=== PATIENT | female | born 1980 | race Caucasian/White ===

== ENCOUNTER 2023-08-22 19:54 | Outpatient (REF) | payer OTHER, SELFPAY ==
[2023-08-28 12:08] LABS: Age Gdln ACOG Testing Note (.); HPV Aptima Negative (Negative); IGP, Aptima HPV, rfx 16/18,45 Note (.)
== END 2023-08-22 19:55 | disposition home or self-care (01) ==
LOC: LAB 19:54
PROVIDERS: Visit Provider Obstetrics & Gynecology
DX: Z01.419 Encounter for gynecological examination (general) (routine) without abnormal findings (principal)
CPT/HCPCS: 87624; G0145

== ENCOUNTER 2023-09-06 06:53 | Outpatient (OUT) | payer OTHER, SELFPAY ==
--- NOTE | 2023-09-06 | MM_ITS ---
Patient Name: JOSR VAZQUEZ MR#: [id number] : 1980 Exam Date: 09/06/2023 Ordering Doctor: DR Hernan Zamora . RADIOLOGY REPORT PROCEDURE: MM TOMOSYNTHESIS SCREENING BI COMPARISON: MG MAMM SCREEN 3D KADEN CAD, 06/23/2022. INDICATIONS: Screening for malignant neoplasm Calculator Name NCI Breast Cancer Risk Assessment Tool 5 Year Breast Cancer Risk 0.50% Lifetime Breast Cancer Risk 9.00% Personal Breast Cancer No Personal Ovarian Cancer No Treatments None Family Cancers None LOCATION: [facility] BREAST COMPOSITION: Heterogeneously dense,which may obscure small masses. FINDINGS: DIAGNOSTIC CATEGORY 2--BENIGN FINDING: RIGHT BREAST: No significant suspicious finding. Scattered benign-appearing lymph nodes are present. No significant change has occurred. LEFT BREAST: No significant suspicious finding. Scattered benign-appearing lymph nodes are present. No significant change has occurred. RECOMMENDATIONS: ROUTINE MAMMOGRAM AND CLINICAL EVALUATION IN 12 MONTHS. PLEASE NOTE: A NORMAL MAMMOGRAM DOES NOT EXCLUDE THE POSSIBILITY OF BREAST CANCER. A CLINICALLY SUSPICIOUS PALPABLE LUMP SHOULD BE BIOPSIED. Dictated by: Mason Vasquez M.D. on 09/11/2023 at 12:53 Approved by: Mason Vasquez M.D. on 09/11/2023 at 12:57
== END 2023-09-06 06:54 | disposition home or self-care (01) ==
LOC: MAMMO 06:53
PROVIDERS: PCP Family Medicine; Visit Provider Obstetrics & Gynecology
DX: Z12.31 Encounter for screening mammogram for malignant neoplasm of breast (principal)
CPT/HCPCS: 77063; 77067

== ENCOUNTER 2024-08-13 15:06 | Outpatient (OUT) | payer OTHER, SELFPAY ==
[2024-08-13 16:05] LABS: Free T3 2.46 pg/mL (2.18-3.98); Thyroid Stimulating Hormone 3.367 uIU/mL (0.358-3.740)
[2024-08-13 16:20] LABS: Free T4 0.87 ng/dL (0.76-1.46)
== END 2024-08-13 15:07 | disposition home or self-care (01) ==
LOC: LAB 15:10
PROVIDERS: PCP Family Medicine; Visit Provider Family Medicine
DX: R79.89 Other specified abnormal findings of blood chemistry (principal); R53.83 Other fatigue
CPT/HCPCS: 36415; 84439; 84443; 84481

== ENCOUNTER 2024-09-02 21:24 | Outpatient (REF) | payer OTHER, SELFPAY ==
--- OUTSIDE RECORDS SUMMARY | 2024-09-02 21:28 | XMS_ITS | CCD ---
Author Organization [facility] Care Team Providers Care Mend Worker Name Role Phone SERA, DR FLOR Consulting Unavailable ZOE, DR CARLITOS Chaves Primary Care Unavailable SERA, DR FLOR Admitting Unavailable SERA, DR FLOR Attending Unavailable JOAQUIM, DR MASON Watson Consulting Unavailable SERA, DR FLOR Consulting Unavailable ZOE, DR CARLITOS Chaves Primary Care Unavailable SERA, DR FLOR Admitting Unavailable SERA, DR FLOR Attending Unavailable ZOE, DR CARLITOS Chaves Admitting Unavailable ENRIQUEZ, DR CARLITOS Chaves Attending Unavailable ENRIQUEZ, DR CARLITOS Chaves Consulting Unavailable ENRIQUEZ, DR CARLITOS Chaves Primary Care Unavailable Mattie Lemon Unavailable Lisa Dejesus Unavailable Paige Benitez MD Primary Care Provider Medications Current Medications Medication Drug Class(es) Dates Sig (Normalized) Sig (Original) fluconazole 150 mg oral tablet (1 source) Azole Antifungal Start: 08-22-2023 fluconazole (Diflucan) 150 MG tablet Indications: Yeast infection Take one tablet by mouth now and again in 4 days 2 tablet 1 08/22/2023 Active predniSONE 20 mg oral tablet (1 source) Start: 11-14-2023 take 1 tablet by mouth every twelve hours prednisone 20 MG 1 tablet Orally BID for 5 Oct, Active Completed/Discontinued Medications Medication Drug Class(es) Dates Sig (Normalized) Sig (Original) methylPREDNISolone 4 mg oral tablet (2 sources) Corticosteroid methylPREDNISolo ne 4 MG as directed Orally daily for 6 days Not-Taking/PRN triamcinolone acetonide 1 mg/ml topical cream (3 sources) Corticosteroid Start: 4 End: 4 Triamcinolone Acetonide Discontinued 1 APPLIC TOPICAL Twice daily June 13, 2024 12:00am June 13, 2024 2:56pm Free[employer] application Externally Twice a day; Note: Source Status: Not-Taking\PRN; Refills: 0; Qty: 45 gram; Provider: Ion Robles Start: 06-23-2023 Triamcinolone Acetonide 0.1 % 1 application Externally Twice a day for 10 days Jun, Not-Taking/PRN Start: 06-23-2023 Triamcinolone Acetonide 0.1 % 1 application Externally Twice a day for 10 days Jun, Active Problems Active Problems Problem Classification Problem Date Documented Date Episodic/Chronic Allergic reactions (1 source) Allergic contact dermatitis due to plants, except food Episodic Immunizations and screening for infectious disease (1 source) Encounter for screening for human papillomavirus (HPV); Translations: [ENC SCREENING HUMAN PAPILLOMAVIRUS] Onset: 06-15-2022 Episodic Other screening for suspected conditions (not mental disorders or infectious disease) (10 sources) Encounter for screening mammogram for malignant neoplasm of breast; Translations: [Encounter for screening for malignant neoplasm of cervix] Onset: 06-14-2022 Episodic Past or Other Problems Problem Classification Problem Date Documented Da te Episodic/Chronic Unclassified (1 source) Contact with and (suspected) exposure to covid-19 Z20.822 Viral infection (1 source) COVID-19 Results Test Name Value Interpretation Reference Range Facility Basophils Auto (Bld) [#/Vol] on 05-31-2024 Basophils (Bld) [#/Vol] 0.1 10 3/uL 0.0-0.[address] [facility] Basophils/100 WBC Auto (Bld) on 05-31-2024 Basophils/100 WBC (Bld) 1.1 % 0.2-2.[address] [facility] Cholesterol in LDL Calc [Mas s/Vol]on 05-31-2024 Cholesterol in LDL [Mass/Vol] 131.8 mg/dL [facility] Comment on above: <100 mg/dl [id number] 0-129 mg/dl NEAR OR ABOVE [id number] mg/dl BORDERLINE [id number] mg/dl HIGH>190 mg/dl VERY HIGH Cholesterol in VLDL Calc [Ma ss/Vol]on 05-31-2024 Cholesterol in VLDL [Mass/Vol] 13.2 mg/dL [facility] Eosinophils/100 WBC Auto (Bl d)on 05-31-2024 Eosinophils/100 WBC (Bld) 2.0 % 0.9-7.[address] [facility] Erythrocyte distribution wid th Auto (RBC) [Ratio]on 05-31-2024 Erythrocyte distribution width (RBC) [Ratio] 13.2 % 11.0-15.[address] [facility] Estimated glomerular filtrat ion rate (GFR) non- Americanon 05-31-2024 GFR/1.73 sq M.predicted among non-blacks MDRD (S/P/Bld) [Vol rate/Area] mL/min/{1.73_m2} >=[address] [facility] Globulin Calc (S) [Mass/Vol] on 05-31-2024 Globulin (S) [Mass/Vol] 3.3 g/dL [facility] Hematocrit Auto (Bld) [Volum e fraction]on 05-31-2024 Hematocrit (Bld) [Volume fraction] 42.4 % 36.0-48.[address] [facility] Hemoglobin [Mass/volume] in Bloodon 05-31-2024 Hemoglobin (Bld) [Mass/Vol] 13.4 g/dL 12.0-16.[address] [facility] Laboratory - Chemistry and C hemistry - challengeon 05-31-2024 Albumin [Mass/Vol] 4.0 g/dL 3.4-5.0 [facility] ALP [Catalytic activity/Vol] 58 U/L 46-[address] [facility] ALT [Catalytic activity/Vol] 34 U/L 14-[address] [facility] AST [Catalytic activity/Vol] 20 U/L 15-[address] [facility] Bilirubin [Mass/Vol] 0.5 mg/dL 0.2-1.0 [facility] Calcium [Mass/Vol] 8.8 mg/dL 8.5-10.1 [facility] Chloride [Moles/Vol] 104 mmol/L 98-107 [facility] Cholesterol [Mass/Vol] 196 mg/dL <=[address] [facility] Cholesterol in HDL [Mass/Vol] 51 mg/dL 40-[address] [facility] Comment on above: > or =60 mg/dl - LOW CARDIOVASCULAR RISK<40 mg/dl - HIGH CARDIOVASCULAR RISK CO2 [Moles/Vol] 27.3 mmol/L 21.0-32.0 [facility] Creatinine [Mass/Vol] 0.76 mg/dL 0.55-1.[address] [facility] GFR/1.73 sq M.predicted MDRD (S/P/Bld) [Vol rate/Area] mL/min/{1.73_m2} >=[address] [facility] Glucose [Mass/Vol] 77 mg/dL 74-106 [facility] Potassium [Moles/Vol] 4.4 mmol/L 3.5-5.[address] [facility] Protein [Mass/Vol] 7.3 g/dL 6.4-8.2 [facility] Sodium [Moles/Vol] 141 mmol/L 136-145 [facility] Triglyceride [Mass/Vol] 66 mg/dL <=[address] [facility] TSH Qn 4.503 m[IU]/L High 0.358-3.[address] [facility] Urea nitrogen [Mass/Vol] 11.0 mg/dL 7.0-18.[address] [facility] Urea nitrogen/Creatinine [Mass ratio] 14.5 mg/mg [facility] Laboratory - Hematology and Cell countson 05-31-2024 Immature granulocytes/100 WBC (Bld) 0.2 % 0.0-0.[address] [facility] Leukocytes [#/volume] correc daphney for nucleated erythrocytes in Blood by Automated counon 05-31-2024 WBC corrected for nucl RBC Auto (Bld) [#/Vol] 6.5 10 3/uL 4.0-11.[address] [facility] Lymphocytes Auto (Bld) [#/Vo l]on 05-31-2024 Lymphocytes (Bld) [#/Vol] 2.5 10 3/uL 1.2-3.[address] [facility] Lymphocytes/100 WBC Auto (Bl d)on 05-31-2024 Lymphocytes/100 WBC (Bld) 38.4 % 20.5-60.[address] [facility] MCH Auto (RBC) [Entitic mass ]on 05-31-2024 MCH (RBC) [Entitic mass] 27.9 pg 26.7-34.[address] [facility] MCHC Auto (RBC) [Mass/Vol]on 05-31-2024 MCHC (RBC) [Mass/Vol] 31.6 g/dL 29.9-35.[address] [facility] MCV Auto (RBC) [Entitic vol] on 05-31-2024 MCV (RBC) [Entitic vol] 88.3 fL 81.0-99.[address] [facility] Monocytes Auto (Bld) [#/Vol] on 05-31-2024 Monocytes (Bld) [#/Vol] 0.5 10 3/uL 0.3-0.[address] [facility] Monocytes/100 WBC Auto (Bld) on 05-31-2024 Monocytes/100 WBC (Bld) 7.4 % 1.7-12.[address] [facility] Neutrophils Auto (Bld) [#/Vo l]on 05-31-2024 Neutrophils (Bld) [#/Vol] 3.3 10 3/uL 1.4-6.[address] [facility] Neutrophils/100 WBC Auto (Bl d)on 05-31-2024 Neutrophils/100 WBC (Bld) 50.9 % 43.0-75.[address] [facility] No Panel Informationon 05-31 Eosinophils # (Auto) 0.1 10 3/uL 0.0-0.7 [facility] Immature Granulocyte # (Auto) 0.01 10 3/uL 0.00-0.[address] [facility] Platelet mean volume Auto (B ld) [Entitic vol]on 05-31-2024 Platelet mean volume (Bld) [Entitic vol] 10.5 fL 9.5-13.[address] [facility] Platelets Auto (Bld) [#/Vol] on 05-31-2024 Platelets (Bld) [#/Vol] 284 10 3/uL 150-[address] [facility] RBC Auto (Bld) [#/Vol]on RBC (Bld) [#/Vol] 4.80 10 6/uL 4.20-5.40 [facility] Serum or plasma albumin/glob ulin mass ratioon 05-31-2024 Albumin/Globulin [Mass ratio] 1.2 {ratio} [facility] Serum or plasma anion gap de terminationon 05-31-2024 Anion gap [Moles/Vol] 14.1 mmol/L [facility] Serum or plasma total choles terol/high density lipoprotein (HDL) cholesterol mass aannd 05-31-2024 Cholesterol.total/Ch olesterol in HDL [Mass ratio] 3.8 {ratio} [facility] Comment on above: 3.3 - 4.4 LOW RISK4. 4 - 7.1 AVERAGE RISK7.1 - 11.0 MODERATE RISK>11.0 HIGH RISK COVID + FLU Quick Testingon 11-14-2023 SARS-CoV-2 (COVID-19) RNA RISSA+probe Ql (Unsp spec) Positive [facility] Other COVID + FLU Quick Testing Negative [employer] Other MG MAMM SCREEN 3D KADEN CADon 06-23-2022 MG MAMM SCREEN 3D KADEN CAD Patient: CARLEY RUBIO Exam Date: 06/23/2022 : 1980 Gender:F Ordering : DR CHACHO ZAMORA . Admission #: [id number] Family : Order #: [id number] CLICK HERE TO VIEW EXAM RADIOLOGY REPORT PROCEDURE: MAMMOGRAM SCREENING 3D BILATERAL CAD COMPARISON: None. INDICATIONS: Screening mammography Calculator Name NCI Breast Cancer Risk Assessment Tool 5 Year Breast Cancer Risk 0.50% Lifetime Breast Cancer Risk 9.00% Personal Breast Cancer No Personal Ovarian Cancer No Treatments None Family Cancers None LOCATION: [facility] BREAST COMPOSITION: Heterogeneously dense,which may obscure small masses. FINDINGS: DIAGNOSTIC CATEGORY 2--BENIGN FINDING: RIGHT BREAST: No significant suspicious finding. Benign-appearing lymph node posterior upper-outer quadrant. LEFT BREAST: No significant suspicious finding. Benign-appearing lymph node posterior upper-outer quadrant. RECOMMENDATIONS: ROUTINE MAMMOGRAM AND CLINICAL EVALUATION IN 12 MONTHS. PLEASE NOTE: A NORMAL MAMMOGRAM DOES NOT EXCLUDE THE POSSIBILITY OF BREAST CANCER. A CLINICALLY SUSPICIOUS PALPABLE LUMP SHOULD BE BIOPSIED. Dictated by: Mason Vasquez M.D. on 06/24/2022 at 08:10 Approved by: Mason Vasquez M.D. on 06/24/2022 at 08:14 Normal [facility] PAP ACOG PANEL 2: 30 to 65on 06-22-2022 . . Normal [facility] Comment on above: Result Comment: Perf ormed at: WB Performed By: #### [id number] #### [facility] [address] [address] [address] Ofelia Chi Age Gdln ACOG Testing 30-65 [facility] Comment on above: Performed By: #### [id number] #### [facility] [address] [address] [address] Ofelia Chi DIAGNOSIS: Comment [facility] Comment on above: Result Comment: NEGA TIVE FOR INTRAEPITHELIAL LESION OR MALIGNANCY. Performed at: WB Performed By: #### [id number] #### [facility] [address] [place] [address] Dr. Ofelia Chi HPV Aptima Negative Normal Negative [facility] Comment on above: Result Comment: This nucleic acid amplification test detects fourteen high-risk HPV types (16,18,31,33,35,39,45,51,52,56,58,59,66,68) without differentiation. Performed at: =G Performed By: #### [id number] #### [facility] [address] [place] [address] Dr. Ofelia Chi Methodology: Comment [facility] Comment on above: Result Comment: This liquid based ThinPrep(R) pap test was screened with the use of an image guided system. Performed at: WB Performed By: #### [id number] #### [facility] [address] [place] [address] Dr. Ofelia Chi Note: Comment [facility] Comment on above: Result Comment: The Pap smear is a screening test designed to aid in the detection of premalignant and malignant conditions of the uterine cervix. It is not a diagnostic procedure and should not be used as the sole means of detecting cervical cancer. Both false-positive and false-negative reports do occur. . Performed at: WB Performed By: #### [id number] #### [facility] [address] [place] [address] Dr. Ofelia Chi Performed by: Comment Normal [facility] Comment on above: Result Comment: [place], Associate Music Professor (ASCP) Performed at: WB Performed By: #### [id number] #### [facility] [address] [place] [address] Dr. Ofelia Chi Specimen adequacy: Comment Normal [facility] Comment on above: Result Comment: Sati sfactory for evaluation. Endocervical and/or squamous metaplastic cells (endocervical component) are present. Performed at: WB Performed By: #### [id number] #### [facility] [address] [place] [address] Dr. Ofelia Chi [facility] CBC AUTO DIFFon 06-02-2022 BASO # 0.1 103/ul Normal 0.0-0.1 [facility] Comment on above: Performed By: #### H FPFCBC #### [facility] [address] [place] [address] Dr. Ofelia Chi Basophils/100 WBC (Bld) 1.1 % Normal 0.2-2.0 [facility] Comment on above: Performed By: #### H FPFCBC #### [facility] [address] [place] [address] Dr. Ofelia Chi EO # 0.2 103/ul Normal 0.0-0.7 [facility] Comment on above: Performed By: #### H FPFCBC #### [facility] [address] [place] [address] Dr. Ofelia Chi Eosinophils/100 WBC (Bld) 2.1 % Normal 0.9-7.0 [facility] Comment on above: Performed By: #### H FPFCBC #### [facility] [address] [place] [address] Dr. Ofelia Chi Erythrocyte distribution width (RBC) [Ratio] 13.1 % Normal 11.0-15.0 [facility] Comment on above: Performed By: #### H FPFCBC #### [facility] [address] [place] [address] Dr. Ofelia Chi Hematocrit (Bld) [Volume fraction] 40.8 % Normal 36.0-48.0 [facility] Comment on above: Performed By: #### H FPFCBC #### [facility] [address] [address] [address] Ofelia Chi Hemoglobin (Bld) [Mass/Vol] 12.8 g/dL Normal 12.0-16.0 [facility] Comment on above: Performed By: #### H FPFCBC #### [facility] [address] [address] [address] Ofelia Chi IG # 0.02 10e3/ul Normal 0.00-0.03 [facility] Comment on above: Performed By: #### H FPFCBC #### [facility] [address] [address] [address] Ofelia Chi IG % 0.3 % Normal 0.0-0.5 [facility] Comment on above: Performed By: #### H FPFCBC #### [facility] [address] [place] [address] Dr. Ofelia Chi LYMPH # 2.6 103/ul Normal 1.2-3.8 [facility] Comment on above: Performed By: #### H FPFCBC #### [facility] [address] [address] [address] Ofelia Chi Lymphocytes/100 WBC (Bld) 36.2 % Normal 20.5-60.0 [facility] Comment on above: Performed By: #### H FPFCBC #### [facility] [address] [address] [address] Ofelia Chi MCH (RBC) [Entitic mass] 27.6 pg Normal 26.7-34.0 [facility] Comment on above: Performed By: #### H FPFCBC #### [facility] [address] [address] [address] Ofelia Chi MCHC (RBC) [Mass/Vol] 31.4 g/dL Normal 29.9-35.2 [facility] Comment on above: Performed By: #### H FPFCBC #### [facility] [address] [address] [address] Ofelia Chi MCV (RBC) [Entitic vol] 87.9 fL Normal 81.0-99.0 [facility] Comment on above: Performed By: #### H FPFCBC #### [facility] [address] [place] [address] Dr. Ofelia Chi MONO # 0.6 103/ul Normal 0.3-0.8 [facility] Comment on above: Performed By: #### H FPFCBC #### [facility] [address] [place] [address] Dr. Ofelia Chi Monocytes/100 WBC (Bld) 8.4 % Normal 1.7-12.0 [facility] Comment on above: Performed By: #### H FPFCBC #### [facility] [address] [place] [address] Dr. Ofelia Chi NEUT # 3.7 103/ul Normal 1.4-6.5 [facility] Comment on above: Performed By: #### H FPFCBC #### [facility] [address] [place] [address] Dr. Ofelia Chi Neutrophils/100 WBC (Bld) 51.9 % Normal 43.0-75.0 [facility] Comment on above: Performed By: #### H FPFCBC #### [facility] [address] [place] [address] Dr. Ofelia Chi Platelet mean volume (Bld) [Entitic vol] 10.0 fL Normal 9.5-13.5 [facility] Comment on above: Performed By: #### H FPFCBC #### [facility] [address] [place] [address] Dr. Ofelia Chi PLT 255 103/ul Normal 150-450 [facility] Comment on above: Performed By: #### H FPFCBC #### [facility] [address] [place] [address] Dr. Ofelia Chi RBC 4.64 106/ul Normal 4.20-5.40 [facility] Comment on above: Performed By: #### H FPFCBC #### [facility] [address] [place] [address] Dr. Ofelia Chi WBC 7.1 103/ul Normal 4.0-11.0 [facility] Comment on above: Performed By: #### H FPFCBC #### [facility] [address] [address] [address] Ofelia Chi [employer] PROFILEon 06-02- 022 Albumin [Mass/Vol] 3.8 g/dL Normal 3.4-5.0 [facility] Comment on above: Performed By: #### H FPF #### [facility] [address] [place] [address] Dr. Ofelia Chi Albumin/Globulin [Mass ratio] 1.1 {ratio} Normal [facility] Comment on above: Performed By: #### H FPF #### [facility] [address] [place] [address] Dr. Ofelia Chi ALP [Catalytic activity/Vol] 47 U/L Normal 46-116 [facility] Comment on above: Performed By: #### H FPF #### [facility] [address] [place] [address] Dr. Ofelia Chi ALT [Catalytic activity/Vol] 18 U/L Normal 14-59 [facility] Comment on above: Performed By: #### H FPF #### [facility] [address] [place] [address] Dr. Ofelia Chi AST [Catalytic activity/Vol] 16 U/L Normal 15-37 [facility] Comment on above: Performed By: #### H FPF #### [facility] [address] [place] [address] Dr. Ofelia Chi Bilirubin [Mass/Vol] 0.2 mg/dL Normal 0.2-1.0 [facility] Comment on above: Performed By: #### H FPF #### [facility] [address] [address] [address] Ofelia Chi Calcium [Mass/Vol] 8.8 mg/dL Normal 8.5-10.1 [facility] Comment on above: Performed By: #### H FPF #### [facility] [address] [place] [address] Dr. Ofelia Chi Chloride [Moles/Vol] 104 mmol/L Normal 98-107 [facility] Comment on above: Performed By: #### H FPF #### [facility] [address] [address] [address] Ofelia Chi CHOL-HDL RATIO NORM SEE BELOW Normal [facility] Comment on above: Result Comment: 3.3 - 4.4 LOW RISK 4.4 - 7.1 AVERAGE RISK 7.1 - 11.0 MODERATE RISK >11.0 HIGH RISK Performed By: #### H FPF #### [facility] [address] [address] [address] Ofelia Chi Cholesterol [Mass/Vol] 186 mg/dL Normal <=200 [facility] Comment on above: Performed By: #### H FPF #### [facility] [address] [address] [address] Ofelia Chi Cholesterol in HDL [Mass/Vol] 49 mg/dL Normal 40-60 [facility] Comment on above: Performed By: #### H FPF #### [facility] [address] [address] [address] Ofelia Chi Cholesterol in LDL [Mass/Vol] 122.6 mg/dL Normal [facility] Comment on above: Performed By: #### H FPF #### [facility] [address] [address] [address] Ofelia Chi Cholesterol.total/Ch olesterol in HDL [Mass ratio] 3.8 {ratio} Normal [facility] Comment on above: Performed By: #### H FPF #### [facility] [address] [address] [address] Ofelia Chi CO2 [Moles/Vol] 24.5 mmol/L Normal 21.0-32.0 [facility] Comment on above: Performed By: #### H FPF #### [facility] [address] [address] [address] Ofelia Chi Creatinine [Mass/Vol] 0.68 mg/dL Normal 0.55-1.02 [facility] Comment on above: Performed By: #### H FPF #### [facility] [address] [address] [address] Ofelia Chi Globulin (S) [Mass/Vol] 3.4 g/dL Normal [facility] Comment on above: Performed By: #### H FPF #### [facility] [address] [address] [address] Ofelia Chi Glucose [Mass/Vol] 87 mg/dL Normal 74-106 [facility] Comment on above: Performed By: #### H FPF #### [facility] [address] [address] [address] Ofelia Chi HDL NORMAL > or = 60 mg/dl - LOW CARDIOVASCULAR RISK <40 mg/dl - HIGH CARDIOVASCULAR RISK Normal [facility] Comment on above: Performed By: #### H FPF #### [facility] [address] [address] [address] Ofelia Chi LDL CALC NORMAL SEE BELOW Normal [facility] Comment on above: Result Comment: <100 mg/dl OPTIMAL 100 - 129 mg/dl NEAR OR ABOVE OPTIMAL 130 - 159 mg/dl BORDERLINE HIGH 160 - 189 mg/dl HIGH >190 mg/dl VERY HIGH Performed By: #### H FPF #### [facility] [address] [address] [address] Ofelia Chi Potassium [Moles/Vol] 4.1 mmol/L Normal 3.5-5.1 [facility] Comment on above: Performed By: #### H FPF #### [facility] [address] [address] [address] Ofelia Chi Protein [Mass/Vol] 7.2 g/dL Normal 6.4-8.2 [facility] Comment on above: Performed By: #### H FPF #### [facility] [address] [address] [address] Ofelia Chi Sodium [Moles/Vol] 138 mmol/L Normal 136-145 [facility] Comment on above: Performed By: #### H FPF #### [facility] [address] [address] [address] Ofelia Chi Triglyceride [Mass/Vol] 72 mg/dL Normal <=150 [facility] Comment on above: Performed By: #### H FPF #### [facility] [address] [address] [address] Ofelia Chi TSH 3.946 uIU/mL Critically high 0.358-3.740 [facility] Comment on above: Performed By: #### H FPF #### [facility] [address] [address] [address] Ofelia Chi Urea nitrogen [Mass/Vol] 18.0 mg/dL Normal 7.0-18.0 [facility] Comment on above: Performed By: #### H FPF #### [facility] [address] [address] [address] Ofelia Chi Urea nitrogen/Creatinine [Mass ratio] 26.5 mg/mg Normal [facility] Comment on above: Performed By: #### H FPF #### [facility] [address] [address] [address] Ofelia Chi VLDL CALC 14.4 mg/dL [facility] Comment on above: Performed By: #### H FPF #### [facility] [address] [address] [address] Ofelia Chi Vital Signs Date Time Vital Sign Value Performing Clinician Facility 06-13-2024 14:51-0400 Body height 162.56 cm [facility] 06-13-2024 14:51-0400 Body mass index (BMI) [Ratio] 29.5 kg/m2 [facility] 06-13-2024 14:51-0400 Body weight 78.01 kg [facility] 06-13-2024 14:51-0400 Diastolic blood pressure 89 mm[Hg] [facility] 06-13-2024 14:51-0400 Heart rate 80 /min [facility] 06-13-2024 14:51-0400 Systolic blood pressure 136 mm[Hg] [facility] 11-14-2023 17:50-0500 Body height 162.56 cm Lisa Dejesus Other [facility] Other 11-14-2023 17:50-0500 Body mass index (BMI) [Ratio] 29.52 kg/m2 Lisa Dejesus Other [facility] Other 11-14-2023 17:50-0500 Body temperature 98.2 [degF] Lisa Dejesus Other [employer] Other 11-14-2023 17:50-0500 Body weight 78.02 kg Lisa Dejesus Other [employer] Other 11-14-2023 17:50-0500 Respiratory rate 18 /min Lisa Dejesus Other [employer] Other 11-14-2023 17:50-0500 SaO2% (BldA) [Mass fraction] 99 % Lisa Dejesus Other [employer] Other 06-23-2023 11:00-0400 Body height 162.56 cm Mattie Lemon Other [employer] Other 06-23-2023 11:00-0400 Body mass index (BMI) [Ratio] 28.73 kg/m2 Mattie Lemon Other [employer] Other 06-23-2023 11:00-0400 Body weight 75.93 kg Mattie Lemon Other [employer] Other 06-23-2023 11:00-0400 Diastolic blood pressure 82 mm[Hg] Mattie Lemon Other [employer] Other 06-23-2023 11:00-0400 SaO2% (BldA) [Mass fraction] 99 % Mattie Lemon Other [employer] Other 06-23-2023 11:00-0400 Systolic blood pressure 120 mm[Hg] Mattie Lemon Other [employer] Other Encounters Encounter Date Encounter Type Care Provider Facility Start: 09-02-2024 End: 09-02-2024 Bamboo flowsheet Chacho Sera DO Work Phone: [facility] Start: 09-02-2024 End: 09-02-2024 Bamboo flowsheet Chacho Sera DO Work Phone: [facility] Start: 06-13-2024 End: 06-13-2024 ambulatory [facility] Work Phone: Start: 06-13-2024 End: 06-13-2024 Patient encounter procedure [facility] Physician [facility] Work Phone: Start: 05-31-2024 Non-patient / Non-visit [facility] Physician [facility] Work Phone: Start: 11-14-2023 End: 11-14-2023 ambulatory Lisa Dejesus Other [employer] Other Start: 11-14-2023 Office outpatient visit 25 minutes Lisa Dejesus [facility] Start: 06-23-2023 End: 06-23-2023 ambulatory Mattie Lemon Other [employer] Other Start: 06-23-2023 Office outpatient ne w 20 minutes Mattie Lemon [facility] Start: 06-23-2022 End: 06-24-[address] CHACHO ZAMORA Facility:[facility] Start: 06-14-2022 End: 06-14-[address] CHACHO ZAMORA Facility:[facility] Start: 06-02-2022 End: 06-03-[address] CARLITOS ENRIQUEZ Facility:[facility] Procedures Date Procedure Procedure Detail Performing Clinician Start: 09-11-2023 Elana Flor Fazi o DO Work Phone: Plan of Treatment Date Care Activity Detail Author Start: 09-11-2024 Screening for malign ant neoplasm of breast Mammogram [facility] Start: 09-02-2024 End: 09-02-2024 Patient encounter procedure 09/02/2024 3:00 PM EST Office Visit [facility] [address] [place] [id number] Chacho Zamora, DO [address] [place] [address] Arrived [facility] Comment on above: Arrived Start: 06-16-2024 Influenza vaccination Influenz a Vaccine (#1) [facility] Start: 2012 Screening for malign ant neoplasm of cervix [facility] Start: 2003 Screening for malign ant neoplasm of cervix Pap Smear [facility] Immunizations Immunization Date Immunization Notes Care Provider Fa cility 08-13-2024 influenza virus vacc ine, unspecified formulation Chacho Zamora DO Work Phone: [facility] Payers Date Payer Category Payer Private Health Insurance [employer] [id number] 1980 Unknown [id number] 1980 Unknown [id number] 1957 Self-pay [id number] 1957 Unknown [id number] Unknown [id number] Social History Date Type Detail Facility Sex Assigned At [facility] [employer] Other Start: 06-13-2024 Tobacco smoking status MDIS Never smoked tobacco (finding) [facility] Start: 1980 Sex Assigned At Female [facility] Start: 08-15-2023 Gender identity Identifies as female gender (finding) [facility] Start: 08-15-2023 Sexual orientation Heterosexual (finding) [facility] Evaluation note 11-14-2023 Note Date & Type Note Facility 11-14-2023 Evaluation note Encounter Date Diagnosis Assessment Notes Oct, Contact with and (suspected) exposure to covid-19 (ICD-10 - Z20.822) Oct, COVID-19 (ICD-10 - U07.1) Rapid COVID test performed in office today. Advised patient that test was positive. Instructed patient to isolate per CDC guidelines for 5 days from symptom onset, mask 5 days following. May return to work/activities outside home after isolation period as long as symptoms are improving and has been afebrile for 24 hours without use of antipyretic. Advised patient that treatment of COVID is with viral supportive care, OTC cold medications as directed, Tylenol as needed for body aches/fever. Increase fluids and rest. Use rx of prednisone as directed. Encouraged use of cool mist humidifier. Follow-up with PCP to advise of positive result and further management. Immediate eval for SOB, difficulty, chest pain, fevers that do not break with antipyretic or any other concerning symptoms as reviewed on patient education handout. Patient verbalizes understanding and is agreeable to treatment plan. Patient left in stable condition [facility] [employer] Other Evaluation note 06-23-2023 Note Date & Type Note Facility 06-23-2023 Evaluation note Encounter Date Diagnosis Assessment Notes Jun, Allergic contact dermatitis due to plants, except food (ICD-10 - L23.7) Rash consistent with poision rosalie/oak. Discussed diagnosis with patient. Patient to start medrol as directed, take with avoid, advised to avoid additional NSAIDs while on steroid, OK to use Tylenol if needed Discussed steroid SE- increase in BP- she should monitor while taking steroid- stop taking steroid if occur- immediate eval for warning s/sx of elevated BP including BP > 180/100, severe headache, vision changes, CP, palpitation, SOB, swelling Apply trimacinolone as directed to rash, avoiding area around eye, but may use vasoline/aquapho r/visine eye drops as needed. Patient instructed not to scratch or pick at rash, may also use calamine lotion for topical relief, cool wet compress for itching relief Keep rash open to air, cover with nonadherent if needed if drains or risk of getting dirty or irriated Ensure all clothing/items that could have come into contact with plant oil are adequately washed Follow up with PCP in 1 week or sooner if symptoms persist or worsen. S/sx of infection reviewed. Immediate eval for s/sx as discussed Patient verbalizes understanding and is agreeable to treatment plan. [employer] Other Evaluation note Note Date & Type Note Facility Evaluation note Diagnosis Onset Date Elevated TSH acute [facility] Work Phone: Summary Purpose Family History No Family History Records Found Advance Directives Advance Directive Response Recorded Date/ Time Advance Directives No June 13, 2024 2:43pm Chief Complaint and Reason for Visit Chief Complaint discuss labs Reason for Visit Elevated TSH Additional Source Comments INFORMATION SOURCE (unrecogn ized section and content) DATE CREATED AUTHOR 07/13/2022 [employer] REASON FOR VISIT (unrecogniz ed section and content) poison ivyCONGESTION, SINUS PRESSURE Care Teams (unrecognized sec tion and content) Team Status: Active Member Role Status Dates Paige Benitez MD Primary Care Provider Active Team Status: Active Member Role Status Dates Paige Benitez MD Primary Care Provide r, Attending Provider Active Start: May 31, 2024 Team Status: Inactive Member Role Status Dates Paige Benitez MD Primary Care Provide r, Attending Provider Active Start: June 13, 2024 End: June 13, 2024 Mend Worker Relationship Specialty Start Date End Date Paige Benitez MD [address] [place] [address] PCP - General 08/15/23 Goals (unrecognized section and content) Goals may be documented in a n alternate section FOR RECORDS PERTAINING TO PATIENTS WHO ARE OR HAVE BEEN ENROLLED IN A CHEMICAL DEPENDENCY/SUBSTANCEABUSE PROGRAM, SOME INFORMATION MAY BE OMITTED. This clinical summary was aggregated from multiple sources. Caution should be exercised in using it in the provision of clinical care. This summary normalizes information from multiple sources, and as a consequence, information in this document may materially change the coding, format and clinical context of patient data. In addition, data may be omitted in some cases. CLINICAL DECISIONS SHOULD BE BASED ON THE PRIMARY CLINICAL RECORDS. [facility]. provides no warranty or guarantee of the accuracy or completeness of information in this document.
== END 2024-09-02 21:25 | disposition home or self-care (01) ==
LOC: LAB 21:24
PROVIDERS: PCP Family Medicine; Visit Provider Obstetrics & Gynecology
DX: Z01.419 Encounter for gynecological examination (general) (routine) without abnormal findings (principal)
CPT/HCPCS: 87624; 88175

== ENCOUNTER 2024-09-11 08:47 | Outpatient (OUT) | payer OTHER, SELFPAY ==
--- NOTE | 2024-09-11 08:49 | MM_ITS ---
Patient Name: JOSR VAZQUEZ MR#: [id number] : 1980 Exam Date: 09/11/2024 Ordering Doctor: DR Hernan Zamora . RADIOLOGY REPORT PROCEDURE: MM TOMOSYNTHESIS SCREENING BI COMPARISON: MM TOMOSYNTHESIS SCREENING BI, 09/06/2023. MG MAMM SCREEN 3D KADEN CAD, 06/23/2022. INDICATIONS: Screening Calculator Name NCI Breast Cancer Risk Assessment Tool 5 Year Breast Cancer Risk 0.60% Lifetime Breast Cancer Risk 8.90% Personal Breast Cancer No Personal Ovarian Cancer No Treatments None Family Cancers None LOCATION: [facility] BREAST COMPOSITION: The breasts are heterogeneously dense,which may obscure small masses. FINDINGS: DIAGNOSTIC CATEGORY 2--BENIGN FINDING: RIGHT BREAST: No significant suspicious finding. Stable axillary tail lymph node. No significant change has occurred. LEFT BREAST: No significant suspicious finding. Stable axillary tail lymphnode. No significant change has occurred. RECOMMENDATIONS: ROUTINE MAMMOGRAM AND CLINICAL EVALUATION IN 12 MONTHS. PLEASE NOTE: A NORMAL MAMMOGRAM DOES NOT EXCLUDE THE POSSIBILITY OF BREAST CANCER. A CLINICALLY SUSPICIOUS PALPABLE LUMP SHOULD BE BIOPSIED. Dictated by: Mason Vasquez M.D. on 09/11/2024 at 10:59 Approved by: Mason Vasquez M.D. on 09/11/2024 at 11:02
--- OUTSIDE RECORDS SUMMARY | 2024-09-11 08:55 | XMS_ITS | CCD ---
Author Organization [facility] Care Team Providers Care Appliance Tester Name Role Phone DR CHACHO ZAMORA Consulting Unavailable ZOE, DR CARLITOS Chaves Primary Care Unavailable SERA, DR FLOR Admitting Unavailable SERA, DR FLOR Attending Unavailable JOAQUIM, DR MASON Watson Consulting Unavailable SERA, DR FLOR Consulting Unavailable ENRIQUEZ, DR CARLITOS Chaves Primary Care Unavailable SERA, DR FLOR Admitting Unavailable SERA, DR FLOR Attending Unavailable ENRIQUEZ, DR CARLITOS Chaves Admitting Unavailable ENRIQUEZ, DR CARLITOS Chaves Attending Unavailable ENRIQUEZ, DR CARLITOS Chaves Consulting Unavailable ENRIQUEZ, DR CARLITOS Chaves Primary Care Unavailable Mattie Lemon Unavailable Lisa Dejesus Unavailable aPige Benitez MD Primary Care Provider CHACHO ZAMORA Attending Unavailable Medications Current Medications Medication Drug Class(es) Dates Sig (Normalized) Sig (Original) fluconazole 150 mg oral tablet (4 sources) Azole Antifungal Start: 08-22-2023 fluconazole (Diflucan) 150 [...] conditions (not mental disorders or infectious disease) (12 sources) Encounter for screening mammogram for malignant neoplasm of breast; Translations: [Encounter for screening for malignant neoplasm of cervix] Onset: 06-14-2022 Episodic Past or Other Problems Problem Classification Problem Date Documented Da te Episodic/Chronic Unclassified (1 source) Contact with and (suspected) exposure to covid-19 Z20.822 Viral infection (1 source) COVID-19 Results Test Name Value Interpretation Reference Range Facility IGP,APTIMA HPV,AGE GDLNon AGE GDLN ACOG TESTING Note . [facility] Comment on above: TESTS RESULT FLAG UN ITS REF RANGE LAB Clinician Provided Cytology Information Source.............Cervix;Endocervix No. of containers..01 ThinPrep Vial Age Algo ACOG Zoila... FLAG LEGEND: L-Low Normal,H-High Normal,LL-Alert Low,HH-Alert High <-Panic Low,>-Panic High,A-Abnormal,AA-Critical Abnormal Performed at: 01 =[address] [address] April Carranza MD, HPV APTIMA Negative Negative [facility] Comment on above: This nucleic acid am plification test detects fourteen high- risk HPV types (16,18,31,33,35,39,45,51,52,56,58,59,66,68) without differentiation. Performed at: =[facility] [id number] Senior Mainframe Programmer Analyst: April Carranza MD, Phone: [phone] Performed at: [facility] [id number] Senior Mainframe Programmer Analyst: April Carranza MD, Phone: [phone] IGP, APTIMA HPV, RFX 16/18,45 Note . [facility] Comment on above: TESTS RESULT FLAG UN ITS REF RANGE LAB DIAGNOSIS: 02 NEGATIVE FOR INTRAEPITHELIAL LESION OR MALIGNANCY. Specimen adequacy: 02 Satisfactory for evaluation. Endocervical and/or squamous metaplastic cells (endocervical component) are present. Performed by: Damir Vega, Carton Making Machinist ([facility]) . 02 Note: Note 02 The Pap smear is a screening test designed to aid in the detection of premalignant and malignant conditions of the uterine cervix. It is not a diagnostic procedure and should not be used as the sole means of detecting cervical cancer. Both false-positive and false-negative reports do occur. Test Methodology: Note 02 This liquid based ThinPrep(R) pap test was screened with the use of an image guided system. HPV Genotype Reflex Note 02 Criteria not met, HPV Genotype not performed. FLAG LEGEND: L-Low Normal,H-High Normal,LL-Alert Low,HH-Alert High <-Panic Low,>-Panic High,A-Abnormal,AA-Critical Abnormal Performed at: 02 [facility] [address] [address] April Carranza MD, BRUSH-SPATULA CERVIX ENDOCERVIX [facility] Basophils Auto (Bld) [#/Vol] on 05-31-2024 Basophils (Bld) [#/Vol] 0.1 10 3/uL 0.0-0.1 [facility] Basophils/100 WBC Auto (Bld) on 05-31-2024 Basophils/100 WBC (Bld) 1.1 % 0.2-2.0 [facility] Cholesterol in LDL Calc [Mas s/Vol]on 05-31-2024 Cholesterol in LDL [Mass/Vol] 131.8 mg/dL [facility] Comment on above: <100 mg/dl [id number] 0-129 mg/dl NEAR OR ABOVE [id number] mg/dl BORDERLINE GHSS474-969 mg/dl HIGH>190 mg/dl VERY HIGH Cholesterol in VLDL Calc [Ma ss/Vol]on 05-31-2024 Cholesterol in VLDL [Mass/Vol] 13.2 mg/dL [facility] Eosinophils/100 WBC Auto (Bl d)on 05-31-2024 Eosinophils/100 WBC (Bld) 2.0 % 0.9-7.0 [facility] Erythrocyte distribution wid th Auto (RBC) [Ratio]on 05-31-2024 Erythrocyte distribution width (RBC) [Ratio] 13.2 % 11.0-15.0 [facility] Estimated glomerular filtrat ion rate (GFR) non- Americanon 05-31-2024 GFR/1.73 sq M.predicted among non-blacks MDRD (S/P/Bld) [Vol rate/Area] mL/min/{1.73_m2} >=60 [facility] Globulin Calc (S) [Mass/Vol] on 05-31-2024 Globulin (S) [Mass/Vol] 3.3 g/dL [facility] Hematocrit Auto (Bld) [Volum e fraction]on 05-31-2024 Hematocrit (Bld) [Volume fraction] 42.4 % 36.0-48.0 [facility] Hemoglobin [Mass/volume] in Bloodon 05-31-2024 Hemoglobin (Bld) [Mass/Vol] 13.4 g/dL 12.0-16.0 [facility] Laboratory - Chemistry and C hemistry - challengeon 05-31-2024 Albumin [Mass/Vol] 4.0 g/dL 3.4-5.0 [facility] ALP [Catalytic activity/Vol] 58 U/L 46-116 [facility] ALT [Catalytic activity/Vol] 34 U/L 14-59 [facility] AST [Catalytic activity/Vol] 20 U/L 15-37 [facility] Bilirubin [Mass/Vol] 0.5 mg/dL 0.2-1.0 [facility] Calcium [Mass/Vol] 8.8 mg/dL 8.5-10.1 [facility] Chloride [Moles/Vol] 104 mmol/L 98-107 [facility] Cholesterol [Mass/Vol] 196 mg/dL <=200 [facility] Cholesterol in HDL [Mass/Vol] 51 mg/dL 40-60 [facility] Comment on above: > or =60 mg/dl - LOW CARDIOVASCULAR RISK<40 mg/dl - HIGH CARDIOVASCULAR RISK CO2 [Moles/Vol] 27.3 mmol/L 21.0-32.0 [facility] Creatinine [Mass/Vol] 0.76 mg/dL 0.55-1.02 [facility] GFR/1.73 sq M.predicted MDRD (S/P/Bld) [Vol rate/Area] mL/min/{1.73_m2} >=60 [facility] Glucose [Mass/Vol] 77 mg/dL 74-106 [facility] Potassium [Moles/Vol] 4.4 mmol/L 3.5-5.1 [facility] Protein [Mass/Vol] 7.3 g/dL 6.4-8.2 [facility] Sodium [Moles/Vol] 141 mmol/L 136-145 [facility] Triglyceride [Mass/Vol] 66 mg/dL <=150 [facility] TSH Qn 4.503 m[IU]/L High 0.358-3.740 [facility] Urea nitrogen [Mass/Vol] 11.0 mg/dL 7.0-18.0 [facility] Urea nitrogen/Creatinine [Mass ratio] 14.5 mg/mg [facility] Laboratory - Hematology and Cell countson 05-31-2024 Immature granulocytes/100 WBC (Bld) 0.2 % 0.0-0.5 [facility] Leukocytes [#/volume] correc daphney for nucleated erythrocytes in Blood by Automated counon 05-31-2024 WBC corrected for nucl RBC Auto (Bld) [#/Vol] 6.5 10 3/uL 4.0-11.0 [facility] Lymphocytes Auto (Bld) [#/Vo l]on 05-31-2024 Lymphocytes (Bld) [#/Vol] 2.5 10 3/uL 1.2-3.8 [facility] Lymphocytes/100 WBC Auto (Bl d)on 05-31-2024 Lymphocytes/100 WBC (Bld) 38.4 % 20.5-60.0 [facility] MCH Auto (RBC) [Entitic mass ]on 05-31-2024 MCH (RBC) [Entitic mass] 27.9 pg 26.7-34.0 [facility] MCHC Auto (RBC) [Mass/Vol]on 05-31-2024 MCHC (RBC) [Mass/Vol] 31.6 g/dL 29.9-35.2 [facility] MCV Auto (RBC) [Entitic vol] on 05-31-2024 MCV (RBC) [Entitic vol] 88.3 fL 81.0-99.0 [facility] Monocytes Auto (Bld) [#/Vol] on 05-31-2024 Monocytes (Bld) [#/Vol] 0.5 10 3/uL 0.3-0.8 [facility] Monocytes/100 WBC Auto (Bld) on 05-31-2024 Monocytes/100 WBC (Bld) 7.4 % 1.7-12.0 [facility] Neutrophils Auto (Bld) [#/Vo l]on 05-31-2024 Neutrophils (Bld) [#/Vol] 3.3 10 3/uL 1.4-6.5 [facility] Neutrophils/100 WBC Auto (Bl d)on 05-31-2024 Neutrophils/100 WBC (Bld) 50.9 % 43.0-75.0 [facility] No Panel Informationon 05-31 Eosinophils # (Auto) 0.1 10 3/uL 0.0-0.7 [facility] Immature Granulocyte # (Auto) 0.01 10 3/uL 0.00-0.03 [facility] Platelet mean volume Auto (B ld) [Entitic vol]on 05-31-2024 Platelet mean volume (Bld) [Entitic vol] 10.5 fL 9.5-13.5 [facility] Platelets Auto (Bld) [#/Vol] on 05-31-2024 Platelets (Bld) [#/Vol] 284 10 3/uL 150-450 [facility] RBC Auto (Bld) [#/Vol]on RBC (Bld) [#/Vol] 4.80 10 6/uL 4.20-5.40 [facility] Serum or plasma albumin/glob ulin mass ratioon 05-31-2024 Albumin/Globulin [Mass ratio] 1.2 {ratio} [facility] Serum or plasma anion gap de terminationon 05-31-2024 Anion gap [Moles/Vol] 14.1 mmol/L [facility] Serum or plasma total choles terol/high density lipoprotein (HDL) cholesterol mass anand 05-31-2024 Cholesterol.total/Ch olesterol in HDL [Mass ratio] 3.8 {ratio} [facility] Comment on above: 3.3 - 4.4 LOW RISK4. 4 - 7.1 AVERAGE RISK7.1 - 11.0 MODERATE RISK>11.0 HIGH RISK COVID + FLU Quick Testingon 11-14-2023 SARS-CoV-2 (COVID-19) RNA RISSA+probe Ql (Unsp spec) Positive [facility] [employer] Other COVID + FLU Quick Testing Negative [facility] [employer] Other MG MAMM SCREEN 3D KADEN CADon 06-23-2022 MG MAMM SCREEN 3D KADEN CAD Patient: CARLEY RUBIO Exam Date: 06/23/2022 : 1980 Gender:F Ordering : DR CHACHO ZAMORA . Admission #: [id number] Family : Order #: [id number] CLICK HERE TO VIEW EXAM RADIOLOGY REPORT PROCEDURE: MAMMOGRAM SCREENING 3D BILATERAL CAD COMPARISON: None. INDICATIONS: Screening mammography Calculator Name NCI Breast Cancer Risk Assessment Tool 5 Year Breast Cancer Risk 0.50% Lifetime Breast Cancer Risk 9.00% Personal Breast Cancer No Personal Ovarian Cancer No Treatments None Family Cancers None LOCATION: [facility] BREAST COMPOSITION: Heterogeneously dense,which may obscure [...] Vasquez M.D. on 06/24/2022 at 08:14 Normal [facility] PAP ACOG PANEL 2: 30 to 65on 06-22-2022 . . Normal [facility] Comment on above: Result Comment: Perf ormed at: WB Performed By: #### [id number] #### [facility] [address] [address] [address] Ofelia Chi Age Gdln ACOG Testing 30-65 Normal [facility] Comment on above: Performed By: #### [id number] #### [facility] [address] [place] [address] Dr. Ofelia Chi DIAGNOSIS: Comment Normal [facility] Comment on above: Result Comment: NEGA TIVE FOR INTRAEPITHELIAL LESION OR MALIGNANCY. Performed at: WB Performed By: #### [id number] #### [facility] [address] [place] [address] Dr. Ofelia Chi HPV Aptima Negative Normal Negative [facility] Comment on above: Result Comment: This nucleic acid amplification test detects fourteen high-risk HPV types (16,18,31,33,35,39,45,51,52,56,58,59,66,68) without differentiation. Performed at: =G Performed By: #### [id number] #### [facility] [address] [place] [address] Dr. Ofelia Chi Methodology: Comment [facility] Comment on above: Result Comment: This liquid based ThinPrep(R) pap test was screened with the use of an image guided system. Performed at: WB Performed By: #### [id number] #### [facility] [address] [place] [address] Dr. Ofelia Chi Note: Comment Normal [facility] Comment on above: Result Comment: The Pap smear is a screening test designed to aid in the detection of premalignant and malignant conditions of the uterine cervix. It is not a diagnostic procedure and should not be used as the sole means of detecting cervical cancer. Both false-positive and false-negative reports do occur. . Performed at: WB Performed By: #### [id number] #### [facility] [address] [place] [address] Dr. Ofelia Chi Performed by: Comment Normal [facility] Comment on above: Result Comment: [place] Carton Making Machinist ([employer]) Performed at: WB Performed By: #### [id number] #### [facility] [address] [place] [address] Dr. Ofelia Chi Specimen adequacy: Comment Normal [facility] Comment on above: Result Comment: Sati sfactory for evaluation. Endocervical and/or squamous metaplastic cells (endocervical component) are present. Performed at: WB Performed By: #### [id number] #### [facility] [address] [place] [address] Dr. Ofelia Chi [facility] CBC AUTO DIFFon 06-02-2022 BASO # 0.1 103/ul Normal 0.0-0.1 [facility] Comment on above: Performed By: #### H FPFCBC #### [facility] [address] [place] [address] Dr. Ofelia Chi Basophils/100 WBC (Bld) 1.1 % Normal 0.2-2.0 [facility] Comment on above: Performed By: #### H FPFCBC #### [facility] [address] [place] [address] Dr. Ofelia Chi EO # 0.2 103/ul Normal 0.0-0.7 [facility] Comment on above: Performed By: #### H FPFCBC #### [facility] [address] [place] [address] Dr. Ofelia Chi Eosinophils/100 WBC (Bld) 2.1 % Normal 0.9-7.0 [facility] Comment on above: Performed By: #### H FPFCBC #### [facility] [address] [place] [address] Dr. Ofelia Chi Erythrocyte distribution width (RBC) [Ratio] 13.1 % Normal 11.0-15.0 [facility] Comment on above: Performed By: #### H FPFCBC #### [facility] [address] [place] [address] Dr. Ofelia Chi Hematocrit (Bld) [Volume fraction] 40.8 % Normal 36.0-48.0 [facility] Comment on above: Performed By: #### H FPFCBC #### [facility] [address] [place] [address] Dr. Ofelia Chi Hemoglobin (Bld) [Mass/Vol] 12.8 g/dL Normal 12.0-16.0 [facility] Comment on above: Performed By: #### H FPFCBC #### [facility] [address] [place] [address] Dr. Ofelia Chi IG # 0.02 10e3/ul Normal 0.00-0.03 [facility] Comment on above: Performed By: #### H FPFCBC #### [facility] [address] [place] [address] Dr. Ofelia Chi IG % 0.3 % Normal 0.0-0.5 [facility] Comment on above: Performed By: #### H FPFCBC #### [facility] [address] [place] [address] Dr. Ofelia Chi LYMPH # 2.6 103/ul Normal 1.2-3.8 [facility] Comment on above: Performed By: #### H FPFCBC #### [facility] [address] [place] [address] Dr. Ofelia Chi Lymphocytes/100 WBC (Bld) 36.2 % Normal 20.5-60.0 [facility] Comment on above: Performed By: #### H FPFCBC #### [facility] [address] [place] [address] Dr. Ofelia Chi MCH (RBC) [Entitic mass] 27.6 pg Normal 26.7-34.0 [facility] Comment on above: Performed By: #### H FPFCBC #### [facility] [address] [place] [address] Dr. Ofelia Chi MCHC (RBC) [Mass/Vol] 31.4 g/dL Normal 29.9-35.2 [facility] Comment on above: Performed By: #### H FPFCBC #### [facility] [address] [place] [address] Dr. Ofelia Chi MCV (RBC) [Entitic vol] 87.9 fL Normal 81.0-99.0 [facility] Comment on above: Performed By: #### H FPFCBC #### [facility] [address] [place] [address] Dr. Ofelia Chi MONO # 0.6 103/ul Normal 0.3-0.8 [facility] Comment on above: Performed By: #### H FPFCBC #### [facility] [address] [place] [address] Dr. Ofelia Chi Monocytes/100 WBC (Bld) 8.4 % Normal 1.7-12.0 [facility] Comment on above: Performed By: #### H FPFCBC #### [facility] [address] [place] [address] Dr. Ofelia Chi NEUT # 3.7 103/ul Normal 1.4-6.5 [facility] Comment on above: Performed By: #### H FPFCBC #### [facility] [address] [place] [address] Dr. Ofelia Chi Neutrophils/100 WBC (Bld) 51.9 % Normal 43.0-75.0 [facility] Comment on above: Performed By: #### H FPFCBC #### [facility] [address] [place] [address] Dr. Ofelia Chi Platelet mean volume (Bld) [Entitic vol] 10.0 fL Normal 9.5-13.5 [facility] Comment on above: Performed By: #### H FPFCBC #### [facility] [address] [place] [address] Dr. Ofelia Chi PLT 255 103/ul Normal 150-450 [facility] Comment on above: Performed By: #### H FPFCBC #### [facility] [address] [place] [address] Dr. Ofelia Chi RBC 4.64 106/ul Normal 4.20-5.40 [facility] Comment on above: Performed By: #### H FPFCBC #### [facility] [address] [place] [address] Dr. Ofelia Chi WBC 7.1 103/ul Normal 4.0-11.0 [facility] Comment on above: Performed By: #### H FPFCBC #### [facility] [address] [place] [address] Dr. Ofelia Chi [employer] PROFILEon 022 Albumin [Mass/Vol] 3.8 g/dL Normal 3.4-5.0 [facility] Comment on above: Performed By: #### H FPF #### [facility] [address] [place] [address] Dr. Ofelia Chi Albumin/Globulin [Mass ratio] 1.1 {ratio} Normal [facility] Comment on above: Performed By: #### H FPF #### [facility] [address] [place] [address] Dr. Ofelia Chi ALP [Catalytic activity/Vol] 47 U/L Normal 46-116 [facility] Comment on above: Performed By: #### H FPF #### [facility] [address] [place] [address] Dr. Ofelia Chi ALT [Catalytic activity/Vol] 18 U/L Normal 14-59 [facility] Comment on above: Performed By: #### H FPF #### [facility] [address] [place] [address] Dr. Ofelia Chi AST [Catalytic activity/Vol] 16 U/L Normal 15-37 [facility] Comment on above: Performed By: #### H FPF #### [facility] [address] [place] [address] Dr. Ofelia Chi Bilirubin [Mass/Vol] 0.2 mg/dL Normal 0.2-1.0 [facility] Comment on above: Performed By: #### H FPF #### [facility] [address] [place] [address] Dr. Ofelia Chi Calcium [Mass/Vol] 8.8 mg/dL Normal 8.5-10.1 [facility] Comment on above: Performed By: #### H FPF #### [facility] [address] [place] [address] Dr. Ofeila Chi Chloride [Moles/Vol] 104 mmol/L Normal 98-107 [facility] Comment on above: Performed By: #### H FPF #### [facility] [address] [address] [address] Ofelia Chi CHOL-HDL RATIO NORM SEE BELOW Normal [facility] Comment on above: Result Comment: 3.3 - 4.4 LOW RISK 4.4 - 7.1 AVERAGE RISK 7.1 - 11.0 MODERATE RISK >11.0 HIGH RISK Performed By: #### H FPF #### [facility] [address] [address] [address] Ofelia Chi Cholesterol [Mass/Vol] 186 mg/dL Normal <=200 [facility] Comment on above: Performed By: #### H FPF #### [facility] [address] [address] [address] Ofelia Chi Cholesterol in HDL [Mass/Vol] 49 mg/dL Normal 40-60 [facility] Comment on above: Performed By: #### H FPF #### [facility] [address] [place] [address] Dr. Ofelia Chi Cholesterol in LDL [Mass/Vol] 122.6 mg/dL Normal [facility] Comment on above: Performed By: #### H FPF #### [facility] [address] [address] [address] Ofelia Chi Cholesterol.total/Ch olesterol in HDL [Mass ratio] 3.8 {ratio} Normal [facility] Comment on above: Performed By: #### H FPF #### [facility] [address] [address] [address] Ofelia Chi CO2 [Moles/Vol] 24.5 mmol/L Normal 21.0-32.0 [facility] Comment on above: Performed By: #### H FPF #### [facility] [address] [address] [address] Ofelia Chi Creatinine [Mass/Vol] 0.68 mg/dL Normal 0.55-1.02 [facility] Comment on above: Performed By: #### H FPF #### [facility] [address] [place] [address] Dr. Ofelia Chi Globulin (S) [Mass/Vol] 3.4 g/dL Normal [facility] Comment on above: Performed By: #### H FPF #### [facility] [address] [address] [address] Ofelia Chi Glucose [Mass/Vol] 87 mg/dL Normal 74-106 [facility] Comment on above: Performed By: #### H FPF #### [facility] [address] [address] [address] Ofelia Chi HDL NORMAL > or = 60 mg/dl - LOW CARDIOVASCULAR RISK <40 mg/dl - HIGH CARDIOVASCULAR RISK Normal [facility] Comment on above: Performed By: #### H FPF #### [facility] [address] [address] [address] Ofelia Chi LDL CALC NORMAL SEE BELOW Normal [facility] Comment on above: Result Comment: <100 mg/dl OPTIMAL 100 - 129 mg/dl NEAR OR ABOVE OPTIMAL 130 - 159 mg/dl BORDERLINE HIGH 160 - 189 mg/dl HIGH >190 mg/dl VERY HIGH Performed By: #### H FPF #### [facility] [address] [address] [address] Ofelia Chi Potassium [Moles/Vol] 4.1 mmol/L Normal 3.5-5.1 [facility] Comment on above: Performed By: #### H FPF #### [facility] [address] [place] [address] Dr. Ofelia Chi Protein [Mass/Vol] 7.2 g/dL Normal 6.4-8.2 [facility] Comment on above: Performed By: #### H FPF #### [facility] [address] [place] [address] Dr. Ofelia Chi Sodium [Moles/Vol] 138 mmol/L Normal 136-145 [facility] Comment on above: Performed By: #### H FPF #### [facility] [address] [address] [address] Ofelia Chi Triglyceride [Mass/Vol] 72 mg/dL Normal <=150 [facility] Comment on above: Performed By: #### H FPF #### [facility] [address] [place] [address] Dr. Ofelia Chi TSH 3.946 uIU/mL Critically high 0.358-3.740 [facility] Comment on above: Performed By: #### H FPF #### [facility] [address] [address] [address] Ofelia Chi Urea nitrogen [Mass/Vol] 18.0 mg/dL Normal 7.0-18.0 [facility] Comment on above: Performed By: #### H FPF #### [facility] [address] [address] [address] Ofelia Chi Urea nitrogen/Creatinine [Mass ratio] 26.5 mg/mg Normal [facility] Comment on above: Performed By: #### H FPF #### [facility] [address] [address] [address] Ofelia Chi VLDL CALC 14.4 mg/dL Normal [facility] Comment on above: Performed By: #### H FPF #### [facility] [address] [address] [address] Ofelia Chi Vital Signs Date Time Vital Sign Value Performing Clinician Facility 09-02-2024 15:49-0500 Body mass index (BMI) [Ratio] 30.65 kg/m2 [facility] Work Phone: [facility] 09-02-2024 15:49-0500 Body weight 78.47 kg [facility] Work Phone: [facility] 09-02-2024 15:49-0500 Diastolic blood pressure 76 mm[Hg] [facility] Work Phone: [facility] 09-02-2024 15:49-0500 Systolic blood pressure 126 mm[Hg] [facility] Work Phone: [facility] 06-13-2024 14:51-0400 Body height 162.56 cm [facility] 06-13-2024 14:51-0400 Body mass index (BMI) [Ratio] 29.5 kg/m2 [facility] 06-13-2024 14:51-0400 Body weight 78.01 kg [facility] 06-13-2024 14:51-0400 Diastolic blood pressure 89 mm[Hg] [facility] 06-13-2024 14:51-0400 Heart rate 80 /min [facility] 06-13-2024 14:51-0400 Systolic blood pressure 136 mm[Hg] [facility] 11-14-2023 17:50-0500 Body height 162.56 cm Lisa Dejesus [facility] [facility] Other 11-14-2023 17:50-0500 Body mass index (BMI) [Ratio] 29.52 kg/m2 Lisa Dejesus Other [facility] Other 11-14-2023 17:50-0500 Body temperature 98.2 [degF] Lisa Dejesus Other [facility] Other 11-14-2023 17:50-0500 Body weight 78.02 kg Lisa Dejesus Other [facility] Other 11-14-2023 17:50-0500 Respiratory rate 18 /min Lisa Dejesus Other [facility] Other 11-14-2023 17:50-0500 SaO2% (BldA) [Mass fraction] 99 % Lisa Dejesus Other [facility] Other 06-23-2023 11:00-0400 Body height 162.56 cm Mattie Lemon Other [facility] Other 06-23-2023 11:00-0400 Body mass index (BMI) [Ratio] 28.73 kg/m2 Mattie Lemon Other [facility] Other 06-23-2023 11:00-0400 Body weight 75.93 kg Mattie Lemon Other [facility] Other 06-23-2023 11:00-0400 Diastolic blood pressure 82 mm[Hg] Mattie Ion Other [facility] Other 06-23-2023 11:00-0400 SaO2% (BldA) [Mass fraction] 99 % Mattie Lemon Other [facility] Other 06-23-2023 11:00-0400 Systolic blood pressure 120 mm[Hg] Mattie Ion Other [facility] Other Encounters Encounter Date Encounter Type Care Provider Facility Start: 09-02-2024 End: 09-02-2024 Patient encounter procedure Chacho Sera DO Work Phone: [facility] Work Phone: Start: 09-02-2024 End: 09-02-2024 Periodic preventive med est patient 40-64yrs Chacho Sera DO Work Phone: [facility] Comment on above: Well woman exam with routine gynecological exam; Breast cancer screening by mammogram Start: 09-02-2024 End: 09-02-2024 ambulatory CHACHO SERA Not Available Start: 09-02-2024 End: 09-02-2024 Bamboo flowsheet Chacho Sera DO Work Phone: [facility] Start: 09-02-2024 End: 09-10-2024 Bamboo flowsheet Chacho Sera DO Work Phone: [facility] Start: 09-02-2024 End: 09-10-2024 Clinisync Result Encounter Chacho Sera DO Work Phone: [facility] Unsolicited Start: 06-13-2024 End: 06-13-2024 ambulatory [facility] Work Phone: Start: 06-13-2024 End: 06-13-2024 Patient encounter procedure [facility] Work Phone: Start: 05-31-2024 Non-patient / Non-visit [facility] Work Phone: Start: 11-14-2023 End: 11-14-2023 ambulatory Lisa Dejesus Other [facility] Other Start: 11-14-2023 Office outpatient vi sit 25 minutes Lisa Dejesus [facility] Start: 06-23-2023 End: 06-23-2023 ambulatory Mattie Lemon Other [facility] Other Start: 06-23-2023 Office outpatient ne w 20 minutes Mattie Lemon [facility] Start: 06-23-2022 End: 06-24-[address] CHACHO ZAMORA Facility:[facility] Start: 06-14-2022 End: 06-14-[address] CHACHO ZAMORA Facility:[facility] Start: 06-02-2022 End: 06-03-[address] CARLITOS ENRIQUEZ Facility:[facility] Procedures Date Procedure Procedure Detail Performing Clinician Start: 09-02-2024 IGP,APTIMA HPV,AGE GDLN Chacho Zamora DO Work Phone: Start: 09-11-2023 Mammography Chacho browning DO Work Phone: Plan of Treatment Date Care Activity Detail Author Start: 09-15-2025 End: 09-15-2025 Patient encounter procedure 09/15/2025 3:00 PM EST Office Visit [facility] [address] [place] [address] Chacho Zamora DO [address] [place] [address] [facility] Start: 09-11-2024 Screening for malignant neoplasm of breast Mammogram [facility] Start: 09-02-2024 End: 09-02-2024 Patient encounter procedure 09/02/2024 3:00 PM EST Office Visit [facility] [address] [place] [address] Chacho Zamora, DO [address] [place] [address] Arrived [facility] Comment on above: Arrived Start: 09-02-2024 End: 11-02-2025 MG Breast - bilateral Screening Bilateral screening mammogram Imaging Routine Breast cancer screening by mammogram Expected: 09/02/2024 (Approximate), Expires: 11/02/2025 [facility] Work Phone: Comment on above: Expected: 09/02/2024 (Approximate), Expires: 11/02/2025 Start: 06-16-2024 Influenza vaccination Influenza Vacc ine (#1) [facility] Start: 2012 Screening for malignant neoplasm of cervix [facility] Start: 2003 Screening for malignant neoplasm of cervix Pap Smear [facility] THIN PREP TIS PAP AN D HR HPV DNA THIN PREP TIS PAP AND HR HPV DNA Pathology and Cytology Routine Well woman exam with routine gynecological exam Ordered: 09/02/2024 [facility] Comment on above: Ordered: 09/02/2024 [facility] Immunizations Immunization Date Immunization Notes [facility] influenza virus vacc ine, unspecified formulation Chacho Zamora DO Work Phone: [facility] Payers Date Payer Category Payer Private Health Insurance [employer] [id number] 1982 Unknown [id number] 1982 Unknown [id number] 1982 Unknown [id number] 1959 Self-pay [id number] 1957 Unknown [id number] Unknown [id number] Social History Date Type Detail Facility Sex Assigned At [facility] Other Start: 06-13-2024 Tobacco smoking status [facility] Never smoked tobacco (finding) [facility] Start: 1980 Sex Assigned At Female [facility] Tobacco smoking stat [facility] Tobacco smoking consumption unknown [facility] Start: 08-15-2023 Gender identity Identifies as female gender (finding) [facility] Start: 08-15-2023 Sexual orientation Heterosexual (finding) [facility] History of Present illness Narrative 09-02-2024 Virginia Coronado LPN - 09/02/2024 3:00 PM EST Note Date & Type Note Facility 09-02-2024 History of Presen t illness Narrative Reason for Appointment: Patient ID: Carley Rubio is a 44 y.o. female who presents for Well Women Visit Patient presents today for Annual Exam. MEDICATIONS Current Outpatient Medications Medication Instructions fluconazole (Diflucan) 150 MG tablet Take one tablet by mouth now and again in 4 days ALLERGIES No Known Allergies PROBLEMS Active Ambulatory Problems Diagnosis Date Noted No Active Ambulatory Problems Resolved Ambulatory Problems Diagnosis Date Noted No Resolved Ambulatory Problems No Additional Past Medical History HISTORY PAST MEDICAL HISTORY SOCIAL HISTORY History reviewed. No pertinent past medical history. Social History Tobacco Use Smoking status: Not on file Smokeless tobacco: Not on file Substance Use Topics Alcohol use: Not on file Drug use: Not on file FAMILY HISTORY No family history on file. SURGICAL HISTORY History reviewed. No pertinent surgical history. REVIEW OF SYSTEMS Review of Systems: Review of Systems All other systems reviewed and are negative. OBJECTIVE Objective: Physical Exam Constitutional: Appearance: Normal appearance. She is well-developed. Genitourinary: Breasts: Breasts are soft. Right: Normal. Left: Normal. Cardiovascular: Rate and Rhythm: Normal rate and regular rhythm. Pulmonary: Effort: Pulmonary effort is normal. Breath sounds: Normal breath sounds. Abdominal: General: Bowel sounds are normal. There is no distension. Palpations: Abdomen is soft. Tenderness: There is no abdominal tenderness. There is no guarding or rebound. Musculoskeletal: General: No swelling. Normal range of motion. Right lower leg: No edema. Left lower leg: No edema. Neurological: Mental Status: She is alert and oriented to person, place, and time. Skin: General: Skin is warm and dry. Psychiatric: Mood and Affect: Mood normal. Behavior: Behavior normal. Vitals and nursing note reviewed. Exam conducted with a slip injector and applicator present. Vitals: Estimated body mass index is 30.65 kg/m as calculated from the following: Height as of 23: 5' 3 . Weight as of this encounter: 173 lb. BP: 126/76 No LMP recorded. ASSESSMENT & PLAN ICD-10-CM 1. Well woman exam with routine gynecological exam Z01.419 THIN PREP TIS PAP AND HR HPV DNA 2. Breast cancer screening by mammogram Z12.31 Bilateral screening mammogram Bilateral screening mammogram Annual: Patient presents today for an annual exam. Patient states she is doing well and has no complaints. Pap was obtained without difficulty and patient given mammogram order to have scheduled/obtained. Orders Placed This Encounter Procedures Bilateral screening mammogram Follow Up: Patient is to return in one year for annual unless needed otherwise. Documented by Virginia Coronado LPN on behalf of: Chacho Zamora DO documented in this encounter [facility] Evaluation note 11-14-2023 Note Date & [...] treatment plan. Patient left in stable condition [facility] Other Evaluation note 06-23-2023 Note Date & [...] understanding and is agreeable to treatment plan. [place] Other Evaluation note Note Date & Type Note Facility Evaluation note Diagnosis Onset Date Elevated TSH [facility] Work Phone: Evaluation note Note Date & Type Note Facility Evaluation note Diagnosis Well woman exam with routine gynecological exam Routine gynecological examination Breast cancer screening by mammogram documented in this encounter [facility] Summary Purpose Family History No Family History Records FoundNo Family History Records Found Advance Directives Advance Directive Response Recorded Date/ Time Advance Directives No June 13, 2024 2:43pm Chief Complaint and Reason for Visit Chief Complaint discuss labs Reason for Visit Elevated TSH Additional Source Comments INFORMATION SOURCE (unrecogn ized section and content) DATE CREATED AUTHOR 07/13/2022 [facility] DATE CREATED AUTHOR AUTHOR'S ORGANIZ ATION 09/04/2024 [facility] EPIC REASON FOR VISIT (unrecogniz ed section and content) Reason Comments Well Women Visit Care Teams (unrecognized sec tion and content) [...] June 13, 2024 End: June 13, 2024 Appliance T[employer] Relationship Specialty Start Date End Date Paige Benitez MD [address] [place] [id number] PCP - General 08/15/23 Appliance Tester Relationship Specialty Start Date End Date Paige Benitez MD [address] [place] [id number] PCP - General 08/15/23 Goals (unrecognized section [...] BE BASED ON THE PRIMARY CLINICAL RECORDS. [facility] [employer] [facility]. provides no warranty or guarantee of the accuracy or completeness of information in this document.
== END 2024-09-11 08:48 | disposition home or self-care (01) ==
LOC: MAMMO 08:47
PROVIDERS: PCP Family Medicine; Visit Provider Obstetrics & Gynecology
DX: Z12.31 Encounter for screening mammogram for malignant neoplasm of breast (principal)
CPT/HCPCS: 77063; 77067

== ENCOUNTER 2025-09-12 07:43 | Outpatient (OUT) | payer OTHER, SELFPAY ==
--- OUTSIDE RECORDS SUMMARY | 2025-09-12 07:45 | XMS_ITS | CCD ---
Author Organization [facility] Care Team Providers Care Engraver Wood Name Role Phone SERA, DR FLOR Consulting Unavailable ZOE, DR CARLITOS Chaves Primary Care Unavailable SERA, DR FLOR Admitting Unavailable SERA, DR FLOR Attending Unavailable JOAQUIM, DR MASON Watson Consulting Unavailable SERA, DR FLOR Consulting Unavailable ENRIUQEZ, DR CARLITOS Chaves Primary Care Unavailable SERA, DR FLOR Admitting Unavailable SERA, DR FLOR Attending Unavailable ENRIQUEZ, DR CARLITOS Chaves Admitting Unavailable ENRIQUEZ, DR CARLITOS Chaves Attending Unavailable ENRIQUEZ, DR CARLITOS Chaves Consulting Unavailable ENRIQUEZ, DR CARLITOS Chaves Primary Care Unavailable Mattie Lemon Unavailable [phone] Lisa Dejesus Unavailable Paige Benitez MD Primary Care Provider CHACHO ZAMORA Attending Unavailable Paige Benitez MD Primary Care Provider [phone] Medications Current Medications MedicationDrug Class(es)DatesSig (Normalized)Sig (Original)fluconazole 150 mg oral tablet (5 sources)Azole AntifungalStart: 35-58-2750hzwgjqvdesi (Diflucan) 150 MG tablet Indications: Yeast infection Take one tablet by mouth now and again in 4 days 2 tablet 1 08/22/2023 ActivepredniSONE 20 mg oral tablet (1 source)Start: 60-84-7195jdwh 1 tablet by mouth every twelve hoursprednisone 20 MG 1 tablet Orally BID for 5 Oct, Active Completed/Discontinued Medications MedicationDrug Class(es)DatesSig (Normalized)Sig (Original)methylPREDNISolone 4 mg oral tablet (2 sources)CorticosteroidmethylPREDNISolone 4 MG as directed Orally daily for 6 days Not-Taking/PRNtriamcinolone acetonide 1 mg/ml topical cream (3 sources)CorticosteroidStart: 06-13-2024 End: 07-73-8192Tjpmkiyuosyep Acetonide Discontinued 1 APPLIC TOPICAL Twice daily June 13, 2024 12:00am June 13, 2024 2:56pm FreeTextSi application Externally Twice a day; Note: Source Status: Not-Taking\PRN; Refills: 0; Qty: 45 gram; Provider: Ion Phelps AStart: 58-30-3456Vcdtlwqgwhrnk Acetonide 0.1 % 1 application Externally Twice a day for 10 days Jun, Not-Taki ng/PRNStart: 38-41-7939Meqjgxedlmqqc Acetonide 0.1 % 1 application Externally Twice a day for 10 days Jun, Active Problems Active Problems Problem ClassificationProblemDateDocumented DateEpisodic/ChronicAllergic reactions (1 source)Allergic contact dermatitis due to plants, except foodEpisodic Immunizations and screening for infectious disease (1 source)Encounter for screening for human papillomavirus (HPV); Translations: [ENC SCREENING HUMAN PAPILLOMAVIRUS]Onset: 74-61-3111OoimmqpnGlmid screening for suspected conditions (not mental disorders or infectious disease) (12 sources)Encounter for screening mammogram for malignant neoplasm of breast; Translations: [Encounter for screening for malignant neoplasm of cervix]Onset: 06-83-1512Etvqiqql Past or Other Problems Problem ClassificationProblemDateDocumented DateEpisodic/ChronicUnclassified (1 source)Contact with and (suspected) exposure to covid-19 Z20.822Viral infection (1 source)COVID-19 Results Test NameValueInterpretationReference RangeFacilityMM TOMOSYNTHESIS SCREENING BI on 47-26-5320[place] [address] Mammography Report Signed Patient: CARLEY RUBIO MR#: [id number] : 1980 Acct:[id number] Age/Sex: 44 / F ADM Date: 09/11/24 Loc: MAMMO Attending Dr: Chacho Zamora D.O. Ordering Physician: Chacho Zamora D.O. Results: Date of Service: 09/11/24 Follow Up: Procedure(s): MM tomosynthesis screening BI Accession Number(s): [id number] cc: Paige Benitez M.D.; Chacho Zamora D.O. Patient Name: CARLEY RUBIO MR#: [id number] : 1980 Exam Date: 09/11/2024 Ordering Doctor: DR Chacho Zamora . RADIOLOGY REPORT PROCEDURE: MM TOMOSYNTHESIS SCREENING BI COMPARISON: MM TOMOSYNTHESIS SCREENING BI, 09/06/2023. MG MAMM SCREEN 3D KADEN CAD, 06/23/2022. INDICATIONS: Screening Calculator Name NCI Breast Cancer Risk Assessment Tool 5 Year Breast Cancer Risk 0.60% Lifetime Breast Cancer Risk 8.90% Personal Breast Cancer No Personal Ovarian Cancer No Treatments None Family Cancers None LOCATION: [facility] BREAST COMPOSITION: The breasts are heterogeneously dense,which may obscure small masses. FINDINGS: DIAGNOSTIC CATEGORY 2--BENIGN FINDING: RIGHT BREAST: No significant suspicious finding. Stable axillary tail lymph node. No significant change has occurred. LEFT BREAST: No significant suspicious finding. Stable axillary tail lymphnode. No significant change has occurred. RECOMMENDATIONS: ROUTINE MAMMOGRAM AND CLINICAL EVALUATION IN 12 MONTHS. PLEASE NOTE: A NORMAL MAMMOGRAM DOES NOT EXCLUDE THE POSSIBILITY OF BREAST CANCER. A CLINICALLY SUSPICIOUS PALPABLE LUMP SHOULD BE BIOPSIED. Dictated by: Mason Vasquez M.D. on 09/11/2024 at 10:59 Approved by: Mason Vasquez M.D. on 09/11/2024 at 11:02 Dictated By: Mason Vasquez M.D. Signed By: 09/11/24 1103 DD/ 1102 TD/TT: Patient Relations Director:TBHRadiology, Radiologist, MD - 09/11/2024 [place] [address] Mammography Report Signed Patient: CARLEY RUBIO MR#: [id number] : 1980 Acct:[id number] Age/Sex: 44 / F ADM Date: 09/11/24 Loc: MAMMO Attending Dr: Chacho Zamora D.O. Ordering Physician: Chacho Zamora D.O. Results: Date of Service: 09/11/24 Follow Up: Procedure(s): MM tomosynthesis screening BI Accession Number(s): [id number] cc: Paige Benitez M.D.; Chacho Zamora D.O. Patient Name: CARLEY RUBIO MR#: [id number] : 1980 Exam Date: 09/11/2024 Ordering Doctor: DR Chacho Zamora . RADIOLOGY REPORT PROCEDURE: MM TOMOSYNTHESIS SCREENING BI COMPARISON: MM TOMOSYNTHESIS SCREENING BI, 09/06/2023. MG MAMM SCREEN 3D KADEN CAD, 06/23/2022. INDICATIONS: Screening Calculator Name NCI Breast Cancer Risk Assessment Tool 5 Year Breast Cancer Risk 0.60% Lifetime Breast Cancer Risk 8.90% Personal Breast Cancer No Personal Ovarian Cancer No Treatments None Family Cancers None LOCATION: [facility] BREAST COMPOSITION: The breasts are heterogeneously dense,which may obscure small masses. FINDINGS: DIAGNOSTIC CATEGORY 2--BENIGN FINDING: RIGHT BREAST: No significant suspicious finding. Stable axillary tail lymph node. No significant change has occurred. LEFT BREAST: No significant suspicious finding. Stable axillary tail lymphnode. No significant change has occurred. RECOMMENDATIONS: ROUTINE MAMMOGRAM AND CLINICAL EVALUATION IN 12 MONTHS. PLEASE NOTE: A NORMAL MAMMOGRAM DOES NOT EXCLUDE THE POSSIBILITY OF BREAST CANCER. A CLINICALLY SUSPICIOUS PALPABLE LUMP SHOULD BE BIOPSIED. Dictated by: Mason Vasquez M.D. on 09/11/2024 at 10:59 Approved by: Mason Vasquez M.D. on 09/11/2024 at 11:02 Dictated By: Mason Vasquez M.D. Signed By: 09/11/24 1103 DD/ 1102 TD/TT: Patient Relations Director: [facility] HealthcareRadiology Study observation (narrative)[facility] Healthcare TOMOSYNTHESIS SCREENING BIOrdered By: Radiologist Radiology on 96-06-4986[facility] Work Phone: IGP,APTIMA HPV,AGE GDLNon 76-26-1238ZUC GDLN ACOG TESTINGNote.[facility] HealthcareComment on above:TESTS RESULT FLAG UNITS REF RANGE LAB Clinician Provided Cytology Information Source.............Cervix;Endocervix No. of containers..01 ThinPrep Vial Age Eun OAKLEY Zoila... 3065 FLAG LEGEND: L-Low Normal,H-High Normal,LL-Alert Low,HH-Alert High <-Panic Low,>-Panic High,A-Abnormal,AA-Critical Abnormal Performed at: 01 =G [address] [place] [address] April Carranza MD, HPV APTIMANegativeNegativeNOMS HealthcareComment on above:This nucleic acid amplification test detects fourteen high- risk HPV types (16,18,31,33,35,39,45,51,52,56,58,59,66,68) without differentiation. Performed at: =G - [address] [id number] [employer] Lead: April Carranza MD, Phone: [phone] Performed at: - [address] [id number] [employer] Lead: April Carranza MD, Phone: [phone] IGP, APTIMA HPV, RFX 16/18,45Note.NOMS HealthcareComment on above:TESTS RESULT FLAG UNITS REF RANGE LAB DIAGNOSIS: 02 NEGATIVE FOR INTRAEPITHELIAL LESION OR MALIGNANCY. Specimen adequacy: 02 Satisfactory for evaluation. Endocervical and/or squamous metaplastic cells (endocervical component) are present. Performed by: Damir Vega, Investigation Specialist ([facility]) . 02 Note: Note 02 The Pap [...] Low,>-Panic High,A-Abnormal,AA-Critical Abnormal Performed at: [address] [address] April Carranza MD, BRUSH-SPATULA CERVIX ENDOCERVIX CLINISYNCNOMA HealthcareBasophils Auto (Bld) [#/Vol]on 48-08-8900Pfjtzrkpc (Bld) [#/Vol]0.1 10 3/uL0.0-0.1FOhioHealth Doctors HospitalBasophils/100 WBC Auto (Bld)on 68-06-4433Drkgjvbix/100 WBC (Bld)1.1 %0.2-2.0[facility] AndersonCholesterol in LDL Calc [Mass/Vol]on 42-70-4979Dbgigwgxhpb in LDL [Mass/Vol]131.8 mg/dLOur Lady Of Mercy Hospital - AndersonComment on above:<100 mg/dl YJLKFHC309-228 mg/dl NEAR OR ABOVE CPOGTIU931-345 mg/dl BORDERLINE SMCQ611-465 mg/dl HIGH>190 mg/dl VERY HIGHCholesterol in VLDL Calc [Mass/Vol]on 59-11-7141Nonqiirizhi in VLDL [Mass/Vol]13.2 mg/dLOur Lady Of Mercy Hospital - AndersonEosinophils/100 WBC Auto (Bld)on 26-04-4603Ebguwdrnytc/100 WBC (Bld)2.0 % 0.9-7.0[facility] AndersonErythrocyte distribution width Auto (RBC) [Ratio]on 63-96-3360Jbbegirfrlj distribution width (RBC) [Ratio]13.2 % 11.0-15.0[facility] AndersonEstimated glomerular filtration rate (GFR) non- Americanon 23-51-8603VFY/1.73 sq M.predicted among non-blacks MDRD (S/P/Bld) [Vol rate/Area]mL/min/{1.73_m2}>=60[facility] AndersonGlobulin Calc (S) [Mass/Vol]on 85-79-2469Ikorojum (S) [Mass/Vol]3.3 g/dL [facility] AndersonHematocrit Auto (Bld) [Volume fraction]on 86-31-0608Ojbsjxoyel (Bld) [Volume fraction]42.4 %36.0-48.0[facility] AndersonHemoglobin [Mass/volume] in Bloodon 76-66-6337Nrtowniehk (Bld) [Mass/Vol]13.4 g/dL12.0-16.0[facility] AndersonLaboratory - Chemistry and Chemistry - challengeon 45-19-4911Zvmzlqv [Mass/Vol]4.0 g/dL 3.4-5.0[facility] AndersonALP [Catalytic activity/Vol]58 U/L46-116 [facility] AndersonALT [Catalytic activity/Vol]34 U/L14-59 [facility] AndersonAST [Catalytic activity/Vol]20 U/L15-37 [facility] AndersonBilirubin [Mass/Vol]0.5 mg/dL0.2-1.0[facility] AndersonCalcium [Mass/Vol]8.8 mg/dL8.5-10.1FOhioHealth Doctors HospitalChloride [Moles/Vol]104 mmol/M10-049FmqxtfyttOur Lady Of Mercy Hospital - AndersonCholesterol [Mass/Vol]196 mg/dL<=200[facility] Cholesterol in HDL [Mass/Vol]51 mg/yP35-34OgwugemouOur Lady Of Mercy Hospital - Anderson Comment on above:> or =60 mg/dl - LOW CARDIOVASCULAR RISK<40 mg/dl - HIGH CARDIOVASCULAR RISKCO2 [Moles/Vol]27.3 mmol/L21.0-32.0[facility] AndersonCreatinine [Mass/Vol]0.76 mg/dL0.55-1.02[facility] GFR/1.73 sq M.predicted MDRD (S/P/Bld) [Vol rate/Area]mL/min/{1.73_m2}>=60 [facility] AndersonGlucose [Mass/Vol]77 mg/rF96-826EchdpwzhoOur Lady Of Mercy Hospital - AndersonPotassium [Moles/Vol]4.4 mmol/L3.5-5.1FOhioHealth Doctors HospitalProtein [Mass/Vol]7.3 g/dL6.4-8.2FOhioHealth Doctors Hospital Sodium [Moles/Vol]141 mmol/U365-286FhhphbhqdOur Lady Of Mercy Hospital - AndersonTriglyceride [Mass/Vol]66 mg/dL<=150[facility] AndersonTSH Qn4.503 m[IU]/LHigh 0.358-3.740[facility] AndersonUrea nitrogen [Mass/Vol]11.0 mg/dL 7.0-18.0[facility] AndersonUrea nitrogen/Creatinine [Mass ratio] 14.5 mg/mgOur Lady Of Mercy Hospital - AndersonLaboratory - Hematology and Cell countson 22-30-5416Hptyfrxl granulocytes/100 WBC (Bld)0.2 %0.0-0.5FOhioHealth Doctors HospitalLeukocytes [#/volume] corrected for nucleated erythrocytes in Blood by Automated counon 24-57-1162FXR corrected for nucl RBC Auto (Bld) [#/Vol]6.5 10 3/uL4.0-11.0[facility] Lymphocytes Auto (Bld) [#/Vol]on 69-38-6482Rcxkzukxikt (Bld) [#/Vol]2.5 10 3/uL 1.2-3.8[facility] AndersonLymphocytes/100 WBC Auto (Bld)on 07-38-0346Wyjjadbqssm/100 WBC (Bld)38.4 %20.5-60.0[facility] HospitalH Auto (RBC) [Entitic mass]on 37-52-8707YJN (RBC) [Entitic mass]27.9 pg 26.7-34.0[facility] HospitalHC Auto (RBC) [Mass/Vol]on 68-23-9231OHKW (RBC) [Mass/Vol]31.6 g/dL29.9-35.2FOhioHealth Doctors HospitalMCV Auto (RBC) [Entitic vol]on 54-51-5949KDO (RBC) [Entitic vol]88.3 fL 81.0-99.0[facility] AndersonMonocytes Auto (Bld) [#/Vol]on 12-01-2642Zocplgvuo (Bld) [#/Vol]0.5 10 3/uL0.3-0.8[facility] AndersonMonocytes/100 WBC Auto (Bld)on 57-24-1482Trqxnpvia/100 WBC (Bld)7.4 % 1.7-12.0[facility] AndersonNeutrophils Auto (Bld) [#/Vol]on 01-56-4927Yilbryvawsf (Bld) [#/Vol]3.3 10 3/uL1.4-6.5FOhioHealth Doctors HospitalNeutrophils/100 WBC Auto (Bld)on 10-98-5032Omsnjlrgzzc/100 WBC (Bld)50.9 % 43.0-75.0[facility] AndersonNo Panel Informationon 05-31-2024 Eosinophils # (Auto)0.1 10 3/uL0.0-0.7Fire[facility] Regional Medical CenterImmature Granulocyte # (Auto)0.01 10 3/uL0.00-0.03[facility] Platelet mean volume Auto (Bld) [Entitic vol]on 34-97-3630Whssiybr mean volume (Bld) [Entitic vol]10.5 fL9.5-13.5FOhioHealth Doctors HospitalPlatelets Auto (Bld) [#/Vol]on 50-73-3925Faanbszpr (Bld) [#/Vol]284 10 3/xR570-926 [facility] AndersonRBC Auto (Bld) [#/Vol]on 52-31-5414CPI (Bld) [#/Vol]4.80 10 6/uL4.20-5.40[facility] Southerum or plasma albumin/globulin mass ratioon 31-86-8462Eoinhzk/Globulin [Mass ratio]1.2 {ratio} [facility] Southerum or plasma anion gap determinationon 26-90-5429Xqcaw gap [Moles/Vol]14.1 mmol/LFMercy Health Urbana Hospitalerum or plasma total cholesterol/high density lipoprotein (HDL) cholesterol mass rat on 17-71-4364Olmhgeztvyz.total/Cholesterol in HDL [Mass ratio]3.8 {ratio} [facility] AndersonComment on above:3.3 - 4.4 LOW RISK4.4 - 7.1 AVERAGE RISK7.1 - 11.0 MODERATE RISK>11.0 HIGH RISKCOVID + FLU Quick Testingon 65-11-4188ZLXO-CoV-2 (COVID-19) RNA RISSA+probe Ql (Unsp spec)PositiveNortSeeMedia Other COVID + FLU Quick TestingNegativeNortSeeMedia Other mg MAMM SCREEN 3D KADEN CADon 28-97-0795EO MAMM SCREEN 3D KADEN CADPatient: CARLEY RUBIO Exam Date: 06/23/2022 : 1980 Gender:F Ordering : DR CHACHO ZAMORA . Admission #: [id number] Family : Order #: [id number] CLICK HERE TO VIEW EXAM RADIOLOGY REPORT PROCEDURE: MAMMOGRAM SCREENING 3D BILATERAL CAD COMPARISON: None. INDICATIONS: Screening mammography Calculator Name NCI Breast Cancer Risk Assessment Tool 5 Year Breast Cancer Risk 0.50% Lifetime Breast Cancer Risk 9.00% Personal Breast Cancer No Personal Ovarian Cancer No Treatments None Family Cancers None LOCATION: [facility] BREAST COMPOSITION: Heterogeneously dense,which may obscure [...] by: Mason Vasquez M.D. on 06/24/2022 at 08:14[facility] PANEL 2: 30 to 65on 06-22-2022..NormalAcmc Healthcare System Comment on above:Result Comment: Performed at: WBPerformed By: #### [id number] #### [facility] [address] [address] [address] Ofelia Gallegos Gdln ACOG Jkoujsh18-06ZmgihiVdqSelect Medical [facility] Hospital, BeachwoodComment on above:Performed By: #### [id number] #### [facility] [address] [address] [address] Ofelia ChiDIAGNOSIS:CommentCleveland Clinic Medina HospitalComment on above: Result Comment: NEGATIVE FOR INTRAEPITHELIAL LESION OR MALIGNANCY. Performed at: WBPerformed By: #### [id number] #### [facility] [address] [address] [address] Ofelia ChiHPV AptimaNegativeNormalNegativeAcmc Healthcare SystemComment on above:Result Comment: This nucleic acid amplification test detects fourteen high-risk HPV types (16,18,31,33,35,39,45,51,52,56,58,59,66,68) without differentiation. Performed at: =GPerformed By: #### [id number] #### [facility] [address] [address] [address] Ofelia ChiMethodology:CommentOhioHealth Pickerington Methodist Hospital on above: Result Comment: This liquid based ThinPrep(R) pap test was screened with the use of an image guided system. Performed at: WBPerformed By: #### [id number] #### [facility] [address] [place] [address] Dr. Ofelia ChiNote:CommentNoProMedica Bay Park Hospital on above:Result Comment: The Pap smear is a screening test designed to aid in the detection of premalignant and malignant conditions of the uterine cervix. It is not a diagnostic procedure and should not be used as the sole means of detecting cervical cancer. Both false-positive and false-negative reports do occur. . Performed at: WBPerformed By: #### [id number] #### [facility] [address] [place] [address] Dr. Ofelia ChiPerformed by:CommentNoProMedica Bay Park Hospital on above: Result Comment: [place], Investigation Specialist (ASCP) Performed at: WBPerformed By: #### [id number] #### [facility] [address] [place] [address] Dr. Ofelia ChiSpecimemarni adequacy:CommentOhioHealth Pickerington Methodist Hospital on above:Result Comment: Satisfactory for evaluation. Endocervical and/or squamous metaplastic cells (endocervical component) are present. Performed at: WBPerformed By: #### [id number] #### [facility] [address] [place] [address] Dr. Ofelia ChiHEALTH FAIR CBC AUTO DIFFon 57-15-0360ELLO #0.1 103/ulNormal 0.0-0.1The [facility] HospitalComment on above:Performed By: #### HFPFCBC #### [facility] [address] [place] [address] Dr. Ofelia ChiBasophils/100 WBC (Bld)1.1 %Normal0.2-2.0[facility] Comment on above:Performed By: #### HFPFCBC #### [facility] [address] [place] [address] Dr. Ofelia Mcconnell #0.2 103/ulNormal0.0-0.7The [facility] HospitalComment on above: Performed By: #### HFPFCBC #### [facility] [address] [place] [address] Dr. Ofelia Barrientososinophils/100 WBC (Bld)2.1 %Normal0.9-7.0[facility] Comment on above:Performed By: #### HFPFCBC #### [facility] [address] [place] [address] Dr. Ofelia Barrientosrythrocyte distribution width (RBC) [Ratio]13.1 %Oqlosv87.0-15.0 [facility] HospitalComment on above:Performed By: #### HFPFCBC #### [facility] [address] [place] [address] Dr. Ofelia ChiHematocrit (Bld) [Volume fraction]40.8 %Fiswqu67.0-48.0The [facility] HospitalComment on above:Performed By: #### YANIQUEFCBC #### [facility] [address] [place] [address] Dr. Ofelia ChiHemoglobin (Bld) [Mass/Vol]12.8 g/mGGpzagt01.0-16.0The [facility] HospitalComment on above:Performed By: #### HFPFCBC #### [facility] [address] [place] [address] Dr. Ofelia Colmenares #0.02 10e3/ulNormal0.00-0.03The [facility] HospitalComment on above:Performed By: #### HFPFCBC #### [facility] [address] [place] [address] Dr. Ofelia Colmenares %0.3 %Normal0.0-0.5The [facility] HospitalComment on above: Performed By: #### HFPFCBC #### [facility] [address] [place] [address] Dr. Ofelia Lima #2.6 103/ulNormal1.2-3.8The [facility] HospitalComment on above:Performed By: #### HFPFCBC #### [facility] [address] [place] [address] Dr. Ofelia Bainmphocytes/100 WBC (Bld)36.2 %Ezrzcj33.5-60.0The [facility] HospitalComment on above:Performed By: #### HFPFCBC #### [facility] [address] [place] [address] Dr. Ofelia Castanon (RBC) [Entitic mass]27.6 pbItpxmh26.7-34.0The [facility] HospitalComment on above:Performed By: #### HFPFCBC #### [facility] [address] [place] [address] Dr. Ofelia Castanon (RBC) [Mass/Vol]31.4 g/uGBspjrt03.9-35.2The [facility] HospitalComment on above:Performed By: #### HFPFCBC #### [facility] [address] [place] [address] Dr. Ofelia Looney (RBC) [Entitic vol]87.9 tRXgnxwt00.0-99.0The [facility] HospitalComment on above:Performed By: #### HFPFCBC #### [facility] [address] [place] [address] Dr. Ofelia Cardona #0.6 103/ulNormal0.3-0.8The [facility] HospitalComment on above:Performed By: #### HFPFCBC #### [facility] [address] [place] [address] Dr. Ofelia Domínguezocytes/100 WBC (Bld)8.4 %Normal1.7-12.0[facility] Comment on above:Performed By: #### HFPFCBC #### [facility] [address] [place] [address] Dr. Ofelia Zaldivar #3.7 103/ulNormal1.4-6.5The [facility] HospitalComment on above:Performed By: #### HFPFCBC #### [facility] [address] [place] [address] Dr. Ofelia Portilloutrophils/100 WBC (Bld)51.9 %Awpzst03.0-75.0The [facility] HospitalComment on above:Performed By: #### HFPFCBC #### [facility] [address] [place] [address] Dr. Ofelia Wallislet mean volume (Bld) [Entitic vol]10.0 fLNormal9.5-13.5The [facility] HospitalComment on above:Performed By: #### HFPFCBC #### [facility] [address] [place] [address] Dr. Ofelia ChiPLT255 103/adSxbvyz137-179Uuo [facility] HospitalComment on above: Performed By: #### HFPFCBC #### [facility] [address] [place] [address] Dr. Ofelia ChiRBC4.64 106/ulNormal4.20-5.40The [facility] HospitalComment on above:Performed By: #### HFPFCBC #### [facility] [address] [place] [address] Dr. Ofelia ChiWBC7.1 103/ulNormal4.0-11.0[facility] on above: Performed By: #### HFPFCBC #### [facility] [address] [place] [address] Dr. Ofelia PadronFAIR PROFILEon 47-35-7154Rehcarr [Mass/Vol]3.8 g/dLNormal 3.4-5.0The [facility] HospitalComment on above:Performed By: #### HFPF #### [facility] [address] [place] [address] Dr. Ofelia ChiAlbumin/Globulin [Mass ratio]1.1 {ratio}NormalThe [facility] on above:Performed By: #### HFPF #### [facility] [address] [place] [address] Dr. Ofelia MelaraP [Catalytic activity/Vol]47 U/LNtczqw80-269Pwr [facility] HospitalComment on above:Performed By: #### HFPF #### [facility] [address] [address] [address] Ofelia Kothari [Catalytic activity/Vol]18 U/CXhiqqe80-73FvwAcmc Healthcare SystemComment on above:Performed By: #### HFPF #### [facility] [address] [address] [address] Ofelia ChiAST [Catalytic activity/Vol]16 U/UZykszr70-67Zln [facility] HospitalComment on above:Performed By: #### HFPF #### [facility] [address] [place] [address] Dr. Ofelia ChiBilirubin [Mass/Vol]0.2 mg/dLNormal0.2-1.0[facility] Comment on above:Performed By: #### HFPF #### [facility] [address] [place] [address] Dr. Ofelia ChiCalcium [Mass/Vol]8.8 mg/dLNormal8.5-10.1[facility] Comment on above:Performed By: #### HFPF #### [facility] [address] [place] [address] Dr. Ofelia ChiChloride [Moles/Vol]104 mmol/EBnxapp01-812VbuAcmc Healthcare System Comment on above:Performed By: #### HFPF #### [facility] [address] [place] [address] Dr. Ofelia ChiCHOL-HDL RATIO [facility] HospitalComment on above:Result Comment: 3.3 - 4.4 LOW RISK 4.4 - 7.1 AVERAGE RISK 7.1 - 11.0 MODERATE RISK >11.0 HIGH RISKPerformed By: #### HFPF #### [facility] [facility] [address] [place] [address] Dr. Ofelia ChiCholesterol [Mass/Vol]186 mg/dLNormal<=200[facility] Comment on above:Performed By: #### HFPF #### [facility] [address] [address] [address] Ofelia ChiCholesterol in HDL [Mass/Vol]49 mg/vACzyotu15-83Mdv [facility] HospitalComment on above:Performed By: #### HFPF #### [facility] [address] [place] [address] Dr. Ofelia ChiCholesterol in LDL [Mass/Vol]122.6 mg/dLNoSelect Medical Cleveland Clinic Rehabilitation Hospital, BeachwoodComment on above:Performed By: #### HFPF #### [facility] [address] [place] [address] Dr. Ofelia ChiCholesterol.total/Cholesterol in HDL [Mass ratio]3.8 {ratio} NormalThe [facility] HospitalComment on above:Performed By: #### HFPF #### [facility] [address] [place] [address] Dr. Ofelia ChiCO2 [Moles/Vol]24.5 mmol/HCcomke53.0-32.0[facility] Comment on above:Performed By: #### HFPF #### [facility] [address] [place] [address] Dr. Ofelia ChiCreatinine [Mass/Vol]0.68 mg/dLNormal0.55-1.02The [facility] HospitalComment on above:Performed By: #### HFPF #### [facility] [address] [place] [address] Dr. Ofelia ChiGlobulin (S) [Mass/Vol]3.4 g/dLNoSelect Medical Cleveland Clinic Rehabilitation Hospital, BeachwoodComment on above:Performed By: #### HFPF #### [facility] [address] [place] [address] Dr. Ofelia ChiGlucose [Mass/Vol]87 mg/uOGvemht11-334Aif [facility] Comment on above:Performed By: #### HFPF #### [facility] [address] [place] [address] Dr. Ofelia ChiHDL NORMAL> or = 60 mg/dl - LOW CARDIOVASCULAR RISK <40 mg/dl - HIGH CARDIOVASCULAR RISKNoSelect Medical [facility] Clinic Rehabilitation Hospital, BeachwoodComment on above:Performed By: #### HFPF #### [facility] [address] [place] [address] Dr. Ofelia ChiLDL CALC NORMALSEE [facility] Nelsonville Health CenterComment on above:Result Comment: <100 mg/dl OPTIMAL 100 - 129 mg/dl NEAR OR ABOVE OPTIMAL 130 - 159 mg/dl BORDERLINE HIGH 160 - 189 mg/dl HIGH >190 mg/dl VERY HIGH Performed By: #### HFPF #### [facility] [address] [address] [address] Ofelia ChiPotassium [Moles/Vol]4.1 mmol/LNormal3.5-5.1[facility] Comment on above:Performed By: #### HFPF #### [facility] [address] [address] [address] Ofelia ChiProtein [Mass/Vol]7.2 g/dLNormal6.4-8.2The [facility] Comment on above:Performed By: #### HFPF #### [facility] [address] [address] [address] Ofelia ChiSodium [Moles/Vol]138 mmol/UYbuniv197-961Iqn [facility] Comment on above:Performed By: #### HFPF #### [facility] [address] [address] [address] Ofelia ChiTriglyceride [Mass/Vol]72 mg/dLNormal<=150[facility] Comment on above:Performed By: #### HFPF #### [facility] [address] [address] [address] Ofelia ChiTSH3.946 uIU/mLCritically high0.358-3.740[facility] Comment on above:Performed By: #### HFPF #### [facility] [address] [address] [address] Ofelia ChiUrea nitrogen [Mass/Vol]18.0 mg/dLNormal7.0-18.0[facility] SystemComment on above:Performed By: #### HFPF #### [facility] [address] [address] [address] Ofelia ChiUrea nitrogen/Creatinine [Mass ratio]26.5 mg/mgNoSelect Medical [facility] Clinic Rehabilitation Hospital, BeachwoodComment on above:Performed By: #### HFPF #### [facility] [address] [address] [address] Ofelia ChiVLDL CALC14.4 mg/dLCleveland Clinic Medina HospitalComment on above: Performed By: #### HFPF #### [facility] [address] [place], [place] [address] Dr. Ofelia Chi Vital Signs Date TimeVital SignValuePerforming HzduodukjEuxjnrnz85-05-7597 15:49-0500Body mass index (BMI) [Ratio]30.65 kg/l6Mrkkk FindMySong DO Work Phone: [facility] HospitalFwoodyajef54-34-8110 15:49-0500Body .47 kgSamaritan North Health Centery [employer] Work Phone: [facility] HospitalSnctaqhads96-27-4776 15:49-0500Diastolic blood dbhqdmco14 mm[Hg][employer] Work Phone: [facility] HospitalTbwkvdkfgd70-87-4559 15:49-0500Systolic blood xtzfsiuq712 mm[Hg][employer] Work Phone: [facility] HospitalCrrobfijtp16-67-6488 14:51-0400Body jymrrh446.56 cmOur [facility]08-29-2024 14:51-0400Body mass index (BMI) [Ratio]29.5 kg/a6KangdwsrjOur Lady Of Mercy Hospital [facility]08-29-2024 14:51-0400Body nezkpj52.01 kgOur Lady Of Mercy [facility]08-29-2024 14:51-0400Diastolic blood mfgehlno88 mm[Hg][facility]08-29-2024 14:51-0400 Heart rate80 /minOur Lady Of Mercy Hospital [facility]08-29-2024 14:51-0400Systolic blood boqytknt167 mm[Hg][facility]01-30-2024 17:50-0500 Body .56 Les Dejesus Other [employer] Other 045976-60-8403 17:50-0500Body mass index (BMI) [Ratio] 29.52 kg/m0HifgpLisa Dejesus Other [employer] Other 01-30-2024 17:50-0500Body krassszhudu85.2 [degF]Lisa Dejesus Other [employer] Other 01-30-2024 17:50-0500Body lotbmk28.02 kgLisa Dejesus Other [employer] Other 01-30-2024 17:50-0500Respiratory rate18 /minLisa Dejesus Other [employer] Other 01-30-2024 17:50-3723CsR8% (BldA) [Mass fraction]99 % Lisa Dejesus Other [employer] Other 09-08-2023 11:00-0400Body pukajq138.56 cmFannymicaela Montejoflorinar Other [employer] Other 09-08-2023 11:00-0400Body mass index (BMI) [Ratio] 28.73 kg/m0Mzgabufb Gustaborbacher Other [employer] Other 09-08-2023 11:00-0400Body fkxizv64.93 kgMattie Montejorbacher Other [employer] Other 09-08-2023 11:00-0400Diastolic blood wlbahkmg92 mm[Hg] Mattie Ion Other [employer] Other 09-08-2023 11:00-5154VxP0% (BldA) [Mass fraction]99 % Mattie Ion Other [employer] Other 09-08-2023 11:00-0400Systolic blood lflkgkco213 mm[Hg] Mattie Montejolb Other [employer] Other Encounters Encounter DateEncounter TypeCare ProviderFacilityStart: 09-11-2024 End: 70-38-1482Vfhxnjest Result EncounterCorey Sera DO Work Phone: [facility] External Department UnsolicitedStart: 09-11-2024 End: 55-51-3437Ktyezgqgf Result EncounterCorey Sera DO Work Phone: [facility] External Department UnsolicitedStart: 09-02-2024 End: 96-56-0867Qlbigyv encounter procedureCorey Sera DO Work Phone: [facility] Work Phone: Start: 09-02-2024 End: 56-39-8128Thfzlxxs preventive med est patient 40-64yrsCorey Sera DO Work Phone: [facility] BCP OBComment on above:Well woman exam with routine gynecological exam; Breast cancer screening by mammogramStart: 09-02-2024 End: 25-00-7173yyiauutygpIZPUH FAZIONot AvailableStart: 09-02-2024 End: 91-45-1625Olgwjh flowsheetCorey Sera DO Work Phone: [facility] BCP OBStart: 09-02-2024 End: 06-65-6718Lbatyp flowsheetCorey Sera DO Work Phone: [facility] BCP OBStart: 09-02-2024 End: 83-93-0903Zshgtrqbk Result EncounterCorey Sera DO Work Phone: [facility] External Department UnsolicitedStart: 06-13-2024 End: 79-61-7159qlzhrrcwsxWcigxenmcFirelands Regional [facility] Work Phone: Start: 06-13-2024 End: 56-38-4435Rcnrvke encounter procedureUn[facility] Work Phone: Start: 09-86-2803Xmz-patient / Non-visitUnc Health [facility] Work Phone: Start: 11-14-2023 End: 46-97-9226qmxcwcbcetLtumi Keller Other [employer] Other Start: 96-08-3121Lhrcpj outpatient visit 25 minutes [facility] ClydeStart: 06-23-2023 End: 26-08-3791zsmjxwvossCztlxmio Rohrbacher Other [employer] Other Start: 08-78-5969Zeftnz outpatient new 20 minutes Mattie RossOhio State University Wexner Medical Centertart: 06-23-2022 End: 16-80-8476eejcqhtlloTO CHACHO FAZIOFacility:D9Hjitn: 06-14-2022 End: 54-53-9695dxxnsebdsbFE CHACHO FAZIOFacility:E3Wdigp: 06-02-2022 End: 27-20-3431sjndmtkduoEC CARLITOS ENRIQUEZFacility:H1 Procedures DateProcedureProcedure DetailPerforming ClinicianStart: 12-81-0348NH TOMOSYNTHESIS SCREENING BICorey Sera DO Work Phone: Start: 81-89-8016PtauwhgeinwWbumm Sera DO Work Phone: Start: 64-25-5993ITB,APTIMA HPV,AGE GDLNCorey Sera DO Work Phone: Start: 41-30-2577Ubkuuinvfcf observation [Identifier] in Cervix by Cyto stainCorey Sera DO Work Phone: Start: 02-27-0756NttnxvrgurpAlipv Sera DO Work Phone: Plan of Treatment DateCare ActivityDetailAuthorStart: 41-75-2676Ibjivciyr for malignant neoplasm of cervixNOMS HealthcareStart: 09-17-2025 End: 65-33-4728Xjhjksd encounter nqozhglqo59/03/2025 3:20 PM EST Office Visit NOMSigifredo SCOTTN [address] [phone] Chacho Zamora, DO [address] [place] [address] NOMSigifredo [place] OBGYNStart: 09-15-2025 End: 04-37-0838Bitlhar encounter eotdbbrhq08/01/2025 3:00 PM EST Office Visit [facility] [address] [place] [phone] Chacho Zamora, DO [address] [place] [address] [facility] OBStart: 63-61-0574Bqwhcxued for malignant neoplasm of breastMammogramNOMS HealthcareStart: 57-68-3595Wqigwissj vaccination Influenza Vaccine (#1)[facility] HealthcareStart: 32-16-4837Ykjarnpqm for malignant neoplasm of breastMammogramNOMS HealthcareStart: 09-02-2024 End: 54-49-1365Akkeirm encounter kilezlcfd17/18/2024 3:00 PM EST Office Visit [facility] [address] [place] [phone] Chacho Zamora, DO [address] [place] [address] ArrivedCONTRA COSTA REG[facility] OBComment on above:ArrivedStart: 09-02-2024 End: 93-50-7035CM Breast - bilateral ScreeningBilateral screening mammogram Imaging Routine Breast cancer screening by mammogram Expected: 09/02/2024 (Approximate), Expires: 11/02/2025[facility] Work Phone: comment on above:Expected: 09/02/2024 (Approximate), Expires: 11/02/2025Start: 90-21-8606Dogdmqohr vaccinationInfluenza Vaccine (#1) [facility] HealthcareStart: 19-45-1703Rbzlqtzth for malignant neoplasm of cervixNOMA HealthcareStart: 14-12-6800Vyxaqkozi for malignant neoplasm of cervixPap Smear NOM HealthcareTHIN PREP TIS PAP AND HR HPV DNATHIN PREP TIS PAP AND HR HPV DNA Pathology and Cytology Routine Well woman exam with routine gynecological exam Ordered: 09/02/2024[facility] HealthcareComment on above:Ordered: 09/02/2024[facility] Immunizations Immunization DateImmunizationNotesCare KhhafscoWtzagrpa86-70-3645kbevtrcwv virus vaccine, unspecified formulationCorey Esra DO Work Phone: [facility] Healthcare Payers DatePayer CategoryPayerPolicy [id number] Health InsuranceMEDICAL MUTUAL [id number] [id number] 2..[id number]-[id number] [id number] Social History DateTypeDetailFacilitySex Assigned At [facility] [employer] Other Start: 12-14-3528Tixpigs smoking status NHISNever smoked tobacco (finding)[facility] Southtart: 51-63-1621Tuy Assigned [facility] smoking status NHISTobacco smoking consumption unknownNOMS HealthcareStart: 97-67-2645Mryaqf identityIdentifies as female gender (finding)[facility] HealthcareStart: 08-15-2023 Sexual orientationHeterosexual (finding)[facility] HealthcareStart: 80-80-0678Lqn FemaleNOMS Healthcare History of Present illness Narrative 09-02-2024 Note Date & GcjzCgoyIhxtfdcg13-35-5166 History of Present illness Narrative* Virginia Coronado, JOSE CARLOS - 09/02/2024 3:00 PM EST Reason for Appointment: Patient ID: Carley Rubio [...] nursing note reviewed. Exam conducted with a boat assembler present. Vitals: Estimated body mass index is 30.65 kg/m as calculated from the following: Height as of 08/22/23: 5' 3 . Weight as of this [...] of: Chacho Zamora DO documented in [facility]South[facility] Evaluation note 11-14-2023 Note Date & TuleEpozKlyewaxs75-28-2728 Evaluation note* Encounter Date Diagnosis Assessment Notes Treatment Notes Treatment Clinical Notes Oct, Contact with and (osei spected) exposure to covid-19 (ICD-10 - Z20.822) Oct,OVID-19 (ICD-10 - U07.1) Rapid COVID test performed [...] as directed. Encouraged use of cool mist humidifier.Follow-up with PCP to advise of positive result and further management. Immediate eval for SOB, difficulty, chest pain, fevers that do not break with antipyretic or any other concerning symptoms as reviewed on patient education handout. Patient verbalizes understanding and is agreeable to treatment plan. Patient left in stable condition [employer] Other Evaluation note 06-23-2023 Note Date & CvogNswtRxqvhckr48-43-1231 Evaluation note* Encounter Date Diagnosis Assessment Notes Treatment Notes Treatment Clinical Notes Jun, Allergic contact mitzi matitis due to plants, except food (ICD-10 - [...] elevated BP including BP > 180/100, severe headache,vision changes, CP, palpitation, SOB, swelling Apply trimacinolone as directed to rash, avoiding area around eye, but may use vasoline/aquaphor/visine eye drops as needed. Patient instructed not [...] understanding and is agreeable to treatment plan. [employer] Other Evaluation note Note Date & TypeNoteFacilityEvaluation note* Diagnosis Onset Date Resolution Status Elevated TSH acute [facility] Work Phone: Evaluation note Note Date & TypeNoteFacilityEvaluation note* Diagnosis Well woman exam with routine gynecological [...] and content) DATE CREATED AUTHOR 07/13/2022 [facility] DATE CREATED AUTHOR AUTHOR'S ORGANIZ ATION 09/04/2024 [facility] EPIC REASON FOR VISIT (unrecogniz ed section and content) ReasonCommentsWell Women Visit Care Teams (unrecognized sec tion [...] Start: June 13, 2024 End: June 13, 2024Team MemberRelationshipSpecialtyStart DateEnd Date Paige Benitez MD [address] [place] [address] PCP - Jeyurph55/31/23Team MemberRelationshipSpecialtyStart DateEnd Date Paige Benitez MD [address] [place] [address] PCP - Uvtyxkr12/31/23Team MemberRelationshipSpecialtyStart DateEnd Date Paige Benitez MD PCP - Reephcc56/31/23 Goals (unrecognized section and content) Goals may [...] BE BASED ON THE PRIMARY CLINICAL RECORDS. [facility]. provides no warranty or guarantee of the accuracy or completeness of information in this document.
--- OUTSIDE RECORDS SUMMARY | 2025-09-12 07:46 | XMS_ITS | Clinical Summary ---
Author Organization [facility] Address [address] [place] [address] Care Team Providers Care Solar Project Manager Name Role Phone Paige Benitez MD Primary Care Provider Allergies No known active allergies Medications MedicationSigDispense QuantityRefillsLast FilledStart DateEnd DateStatus fluconazole (Diflucan) 150 MG tablet Indications:Yeast infectionTake one tablet by mouth now and again in 4 days 2 tablet ctive Social History Tobacco UseTypesPacks/DayYears UsedDateSmoking Tobacco: Never Assessed CommentsUnknownSex and Gender InformationValueDate RecordedSex Assigned at Dccnel9208/15/2023 8:38 AM EDTLegal KoiIbkyov34/15/2023 11:47 PM EDTGender UimwchueZbjykh27/31/2023 8:38 AM EDTSexual WjczkzhyybjWqjstzwj33/31/2023 8:38 AM EDT Last Filed Vital Signs Vital SignReadingTime TakenCommentsBlood Thlmyafy885/7609/02/2024 3:49 PM EST Pulse--Temperature--Respiratory Rate--Oxygen Saturation--Inhaled Oxygen Concentration--Fxiujz24.5 kg (173 lb)09/02/2024 3:49 PM ZAJEylaeu299 cm (5' 3 ) 08/22/2023 3:16 PM ESTBody Mass Index30.6508/22/2023 3:16 PM EST Plan of Treatment DateTypeDepartmentCare Team (Latest Contact Info)Ktpfwefvcjf12/03/2025 3:20 PM ESTOffice Visit [facility] [address] [place] [address] [place] [phone] Hernan Zamora DO [address] [place] [address] Insurance * Guarantor: Carley VazquezAccount TypeRelation to PatientDate of BirthPhone Billing AddressPersonal/YfzoupDivb1980 [address] [place] [address] Care Teams Team MemberRelationshipSpecialtyStart DateEnd Date Paige Benitez MD [address] [facility] [place] [address] PCP - Lfkacbz65/31/23
--- NOTE | 2025-09-12 08:05 | MM_ITS ---
Patient Name: JOSR VAZQUEZ MR#: [id number] : 1980 Exam Date: 09/12/2025 Ordering Doctor: DR CHACHO CASE . RADIOLOGY REPORT PROCEDURE: MM TOMOSYNTHESIS SCREENING BI COMPARISON: MM TOMOSYNTHESIS SCREENING BI, 09/11/2024. MM TOMOSYNTHESIS SCREENING BI, 09/06/2023. MG MAMM SCREEN 3D KADEN CAD, 06/23/2022. INDICATIONS: Screening Calculator Name NCI Breast Cancer Risk Assessment Tool 5 Year Breast Cancer Risk 0.60% Lifetime Breast Cancer Risk 8.80% Personal Breast Cancer No Personal Ovarian Cancer No Treatments None Family Cancers None LOCATION: [facility] BREAST COMPOSITION: There are scattered areas of fibroglandular density. FINDINGS: DIAGNOSTIC CATEGORY 1--NEGATIVE. RIGHT BREAST: No significant suspicious finding. LEFT BREAST: No significant suspicious finding. RECOMMENDATIONS: ROUTINE MAMMOGRAM AND CLINICAL EVALUATION IN 12 MONTHS. Dictated by: Shade Paredes DO on 09/12/2025 at 09:01 Approved by: Shade Paredes DO on 09/12/2025 at 09:02
== END 2025-09-12 07:44 | disposition home or self-care (01) ==
LOC: MAMMO 07:43
PROVIDERS: PCP Family Medicine; Visit Provider Obstetrics & Gynecology
DX: Z12.31 Encounter for screening mammogram for malignant neoplasm of breast (principal)
CPT/HCPCS: 77063; 77067